=== PATIENT | female | born 1990 | race Two or more races ===

== ENCOUNTER → 2020-06-19 15:08 | Outpatient (BNVA) | payer BC, MEDICAID, SELFPAY | PROVIDERS: PCP Physician Assistant; Referring Provider Physician Assistant; Visit Provider Advanced Practice Midwife | DX: Z76.89 Persons encountering health services in other specified circumstances (principal) ==

== ENCOUNTER 2020-07-02 15:26 | Outpatient (REF) | payer BC, MEDICAID, SELFPAY | END 2020-07-02 15:27 | disposition home or self-care (01) | LOC: HO.LAB 15:26 | PROVIDERS: Visit Provider Internal Medicine | DX: Z20.828 Contact with and (suspected) exposure to other viral communicable diseases (principal) | CPT/HCPCS: 87635 ==

== ENCOUNTER 2020-09-27 14:48 | Outpatient (REF) | payer BC, MEDICAID, SELFPAY ==
[2020-09-27 16:50] LABS: Hematocrit 37.9 % (37-47); Hemoglobin 12.8 g/dl (12.0-16.0); Mean Corpuscular HGB Conc 33.8 g/dl (31.0-35.0); Mean Corpuscular Hemoglobin 31.3 pg (27.0-33.0); Mean Corpuscular Volume 92.7 fL (80-98); Mean Platelet Volume 9.8 fL (9.4-12.3); Platelet Count 326 X10*3/uL (160-400); Red Blood Count 4.09 X10*6/uL (4.20-5.50); Red Cell Distribution Width 12.6 % (11.0-16.0); White Blood Count 11.9 X10*3/uL (4.8-10.8)
[2020-09-27 17:32] LABS: TSH reflex Free T4 0.39 mIU/mL (0.32-4.0)
[2020-10-01 12:24] LABS: C. trachomatis RNA TMA NOT DETECTED; N. gonorrhoeae RNA TMA NOT DETECTED
== END 2020-09-27 14:49 | disposition home or self-care (01) ==
LOC: HO.LAB 14:48
PROVIDERS: Visit Provider Advanced Practice Midwife
DX: N93.9 Abnormal uterine and vaginal bleeding, unspecified (principal); Z86.19 Personal history of other infectious and parasitic diseases
CPT/HCPCS: 36415; 81025; 84443; 85027; 87491; 87591

== ENCOUNTER 2020-10-31 15:45 | Outpatient (REF) | payer BC, MEDICAID, SELFPAY ==
--- NOTE | ~2020-10-31 | US_ITS ---
EXAMINATION: US PELVIS, COMPLETE CLINICAL INFORMATION: Abnormal uterine, vaginal bleeding COMPARISON: 08/01/2016 ultrasound pelvis TECHNIQUE: Transabdominal and transvaginal imaging was performed. FINDINGS: LMP: 09/07/2020 Uterus is anteverted measuring 9.2 x 4.8 x 5.3 cm. Diffuse heterogeneity of the uterine parenchyma. No marginated lesion is seen. Endometrial thickness 0.8 cm. Right ovary measures 4.9 x 2.4 x 2.1 cm. Volume 12.9 mL. Multiple bilateral cysts/follicles present.. Left ovary measures 3.3 x 1.8 x 2.0 cm. Volume 6.2 mL. Multiple bilateral cysts/follicles. There are 2 para-ovarian cysts. These measure 1.6 x 0.7 x 1.4 cm and 1.9 x 0.9 x 1.3 cm. (There was a 1.3 cm left paraovarian cyst noted in the prior study of 08/01/2016.) There is vascular flow to bilateral ovaries demonstrated. Small amount of free fluid in the cul-de-sac. US/US transvaginal IMPRESSION: 1. Diffuse heterogeneity of the uterine parenchyma. No marginated lesion is seen. 2. Multiple bilateral ovarian, physiologic-appearing cysts/follicles. 3. There are 2 left-sided paraovarian cysts seen, with a maximum measurement of 1.6 cm and 1.9 cm respectively. Of note, there was a 1.3 cm paraovarian cyst noted in the prior study of 08/01/2016. Consider 6-8 weeks ultrasound for reassessment. 4. Small free fluid in the cul-de-sac.
--- NOTE | ~2020-10-31 | US_ITS ---
EXAMINATION: US PELVIS, COMPLETE CLINICAL INFORMATION: Abnormal uterine, vaginal bleeding COMPARISON: 08/01/2016 ultrasound pelvis TECHNIQUE: Transabdominal and transvaginal imaging was performed. FINDINGS: LMP: 09/07/2020 Uterus is anteverted measuring 9.2 x 4.8 x 5.3 cm. Diffuse heterogeneity of the uterine parenchyma. No marginated lesion is seen. Endometrial thickness 0.8 cm. Right ovary measures 4.9 x 2.4 x 2.1 cm. Volume 12.9 mL. Multiple bilateral cysts/follicles present.. Left ovary measures 3.3 x 1.8 x 2.0 cm. Volume 6.2 mL. Multiple bilateral cysts/follicles. There are 2 para-ovarian cysts. These measure 1.6 x 0.7 x 1.4 cm and 1.9 x 0.9 x 1.3 cm. (There was a 1.3 cm left paraovarian cyst noted in the prior study of 08/01/2016.) There is vascular flow to bilateral ovaries demonstrated. Small amount of free fluid in the cul-de-sac. US/US pelvic complete IMPRESSION: 1. Diffuse heterogeneity of the uterine parenchyma. No marginated lesion is seen. 2. Multiple bilateral ovarian, physiologic-appearing cysts/follicles. 3. There are 2 left-sided paraovarian cysts seen, with a maximum measurement of 1.6 cm and 1.9 cm respectively. Of note, there was a 1.3 cm paraovarian cyst noted in the prior study of 08/01/2016. Consider 6-8 weeks ultrasound for reassessment. 4. Small free fluid in the cul-de-sac.
== END 2020-10-31 15:46 | disposition home or self-care (01) ==
LOC: HO.US 15:45
PROVIDERS: Visit Provider Advanced Practice Midwife
DX: N93.9 Abnormal uterine and vaginal bleeding, unspecified (principal)
CPT/HCPCS: 76830; 76856

== ENCOUNTER → 2020-11-05 13:54 | Outpatient (BNVA) | payer BC, MEDICAID, SELFPAY | PROVIDERS: Visit Provider Advanced Practice Midwife ==

== ENCOUNTER 2020-11-11 15:21 | Outpatient (REF) | payer BC, MEDICAID, SELFPAY ==
[2020-11-12 05:56] LABS: Prolactin 8.6 ng/mL
[2020-11-12 06:47] LABS: DHEA Sulfate 155 mcg/dL (18-391)
[2020-11-17 11:21] LABS: Testosterone, Free 8.7 pg/mL (0.1-6.4); Testosterone, Total 44 ng/dL (2-45)
== END 2020-11-11 15:22 | disposition home or self-care (01) ==
LOC: HO.LAB 15:21
PROVIDERS: Visit Provider Advanced Practice Midwife
DX: L68.0 Hirsutism (principal)
CPT/HCPCS: 36415; 82627; 83498; 84146; 84402; 84403

== ENCOUNTER → 2020-11-18 11:10 | Outpatient (BNVA) | payer BC, MEDICAID, SELFPAY | PROVIDERS: Visit Provider Advanced Practice Midwife ==

== ENCOUNTER 2021-01-06 15:08 | Outpatient (REF) | payer BC, MEDICAID, SELFPAY ==
--- NOTE | ~2021-01-06 | US_ITS ---
EXAMINATION: ULTRASOUND PELVIS COMPLETE CLINICAL INFORMATION: Follow-up paraovarian cyst COMPARISON: None TECHNIQUE: Transabdominal and transvaginal imaging of pelvis is performed FINDINGS: The uterus is anteverted measuring 9.9 cm in length, 4.4 cm in AP and 6.0 cm in transverse dimension. Endometrial thickness is 0.1 cm. There is no focal lesion seen. The uterus is homogeneous in echotexture. There are small anechoic nabothian cyst. Right ovary measures 3.8 x 2.8 x 2.0 cm and volume 11.1 mL. Previously right ovary measured 4.9 x 2.4 x 2.1 cm. The left ovary measures 4.8 x 2.1 x 1.9 cm and volume 10.0 mL. There are small adnexal cysts seen measuring 1.8 x 0.9 x 1.3 cm and 1.4 x 0.7 x 0.9 cm. Previously left ovary measures 3.3 x 1.8 x 2.0 cm. US/US transvaginal IMPRESSION: Unremarkable anteverted uterus. Small nabothian cysts in cervix. Multiple left adnexal cysts. The ovaries are unremarkable.
--- NOTE | ~2021-01-06 | US_ITS ---
EXAMINATION: ULTRASOUND PELVIS COMPLETE CLINICAL INFORMATION: Follow-up paraovarian cyst COMPARISON: None TECHNIQUE: Transabdominal and transvaginal imaging of pelvis is performed FINDINGS: The uterus is anteverted measuring 9.9 cm in length, 4.4 cm in AP and 6.0 cm in transverse dimension. Endometrial thickness is 0.1 cm. There is no focal lesion seen. The uterus is homogeneous in echotexture. There are small anechoic nabothian cyst. Right ovary measures 3.8 x 2.8 x 2.0 cm and volume 11.1 mL. Previously right ovary measured 4.9 x 2.4 x 2.1 cm. The left ovary measures 4.8 x 2.1 x 1.9 cm and volume 10.0 mL. There are small adnexal cysts seen measuring 1.8 x 0.9 x 1.3 cm and 1.4 x 0.7 x 0.9 cm. Previously left ovary measures 3.3 x 1.8 x 2.0 cm. US/US pelvic complete IMPRESSION: Unremarkable anteverted uterus. Small nabothian cysts in cervix. Multiple left adnexal cysts. The ovaries are unremarkable.
== END 2021-01-06 15:09 | disposition home or self-care (01) ==
LOC: HO.US 15:08
PROVIDERS: Visit Provider Advanced Practice Midwife
DX: N83.209 Unspecified ovarian cyst, unspecified side (principal)
CPT/HCPCS: 76830; 76856

== ENCOUNTER → 2021-01-13 14:38 | Outpatient (BNVA) | payer BC, MEDICAID, SELFPAY | PROVIDERS: Visit Provider Advanced Practice Midwife ==

== ENCOUNTER → 2021-01-14 12:50 | Outpatient (BNVA) | payer BC, MEDICAID, SELFPAY | PROVIDERS: Visit Provider Advanced Practice Midwife | DX: N92.0 Excessive and frequent menstruation with regular cycle (principal); N83.209 Unspecified ovarian cyst, unspecified side | CPT/HCPCS: 96372; J1050 ==

== ENCOUNTER → 2021-04-03 12:54 | Outpatient (BNVA) | payer BC, MEDICAID, SELFPAY | PROVIDERS: Visit Provider Advanced Practice Midwife | DX: N92.0 Excessive and frequent menstruation with regular cycle (principal) | CPT/HCPCS: 96372 ==

== ENCOUNTER → 2021-06-09 10:23 | Outpatient (BNVA) | payer BC, MEDICAID, SELFPAY | PROVIDERS: Visit Provider Obstetrics & Gynecology ==

== ENCOUNTER 2021-06-16 15:31 | Emergency (ER) | payer BC, MEDICAID, SELFPAY ==
--- NOTE | ~2021-06-16 | XR_ITS ---
EXAMINATION: XR LUMBOSACRAL SPINE CLINICAL INFORMATION: Back pain COMPARISON: Lumbar radiographs 10/26/2019 TECHNIQUE: Three views of the lumbosacral spine. FINDINGS: There is normal lumbar segmentation with 5 nonrib-bearing lumbar vertebrae of normal height and normal lumbar lordosis. There is no lumbar vertebral compression, spondylolisthesis, or lumbar disc narrowing. No erosive changes. The SI joints and visualized sacrum are unremarkable. XR/XR lumbar spine 2-3V IMPRESSION: Unremarkable examination.
[2021-06-16 16:02] VITALS: BP 138/86; PULSE 84; RESP 16; TEMP 35.9; O2SAT 100; BMI 35.2
--- NOTE | 2021-06-16 18:34 | ED.BACK ---
HPI - Back Pain/Injury General Chief Complaint: Back Pain/Injury Stated Complaint: back pain Time Seen by Provider: 06/16/21 18:08 Source: patient Mode of arrival: ambulatory Limitations: no limitations History of Present Illness HPI Narrative: Patient presents to ED for left-sided back pain that is worse on movement. Patient states back pain started while watching television then she got up and got worse. Patient states pain is worse on movement. Patient denies any blunt trauma to the back, falling to the ground, hitting head, loss of consciousness, abdominal pain, nausea, vomiting, fever, chills, dysuria, or hematuria. Related Data Previous Rx's Medication Instructions Recorded medroxyprogesterone 150 mg/mL 150 mg IM [id number] #1 ml 01/13/21 intramuscular suspension (Depo-Provera) cyclobenzaprine 10 mg tablet 10 mg PO TID PRN #21 tab 06/16/21 naproxen 500 mg tablet 500 mg PO BID PRN #20 tab 06/16/21 nitrofurantoin 100 mg PO Q12H 7 Days #14 cap 06/16/21 monohydrate/macrocrystals 100 mg capsule (Macrobid) Allergies Allergy/AdvReac Type Severity Reaction Status Date / Time bacitracin [BACITRACIN] Allergy Severe HIVES Verified 06/09/21 10:31 triple antibiotic cream Allergy Unknown hives Uncoded 04/19/20 00:00 Review of Systems Review of Systems: Yes all other systems are reviewed and are negative Constitutional: Constitutional: Reports as per HPI and Reports no additional constitutional complaints Eyes: Eyes: Reports as per HPI and Reports no additional eye complaints ENT: Reports system reviewed and no additional complaints, except as documented and Reports as per HPI Cardiovascular: Cardiovascular: Reports as per HPI and Reports no additional cardiovascular complaints Respiratory: Respiratory: Reports as per HPI and Reports no additional respiratory complaints Gastrointestinal: Gastrointestinal: Reports as per HPI and Reports no additional gastrointestinal complaints Genitourinary: Genitourinary: Reports no additional female genitourinary complaints and Reports as per HPI Musculoskeletal: Musculoskeletal: Reports no additional musculoskeletal complaints, Reports as per HPI and Reports back pain (left sided) Neurologic: Reports system reviewed and no additional complaints, except as documented and Reports as per HPI PMFSH Past Medical History Medical History Anxiety Depression PCOS (polycystic ovarian syndrome) Surgical History No history of previous surgery Family History Family History Mother Thyroid cancer Maternal Grandmother HTN (hypertension) Diabetes mellitus Social History Social History Alcohol intake: never Patient Tobacco Use Status: Never used Tobacco Advance Directives: No Advance Directives Information Provided: No Gender identity: Female Physical Exam Vital Signs: Vital Signs: Last Vital Signs Temp 96.7 F L 06/16/21 16:02 Pulse 84 06/16/21 16:02 Resp 16 06/16/21 16:02 BP 138/86 06/16/21 16:02 Pulse Ox 100 06/16/21 16:02 Body Mass Index 35.2 Const: General: cooperative, healthy appearing, comfortable, no acute distress, well developed, alert, awake and Physically active Orientation/consciousness: patient oriented x3 HENMT: Head: Yes normal to inspection, Yes No palpable skull fracture present, Yes normocephalic, Yes atraumatic and No abrasion Eyes: General: appearance normal, both eyes and all related structures Neck: Neck: Yes normal visual inspection, Yes full ROM, Yes no lymphadenopathy, Yes no meningeal signs, Yes trachea midline, Yes supple and No tender Chest: Chest palpation & inspection: normal inspection of the chest and normal palpation of entire chest wall Resp: Effort & Inspection: normal respiratory effort and able to speak in complete sentences Auscultation: clear to auscultation bilaterally Cardio: Jugular venous distension: no JVD Heart sounds: S1 normal heart sound present and S2 normal heart sound present GI: Inspection: Yes normal to inspection and No abdominal wall ecchymosis Palpation (GI): Soft to palpation, not firm, nontender, no guarding and not rigid : General: Yes CVA tenderness (Left flank tenderness on palpation and on movement. ) Back/Spine/Pelvis: Back: CVA tenderness (Left flank tenderness on palpation and on movement. ) and back tenderness (left lumbar muscular pain) Skin: General skin exam: no rashes or lesions noted and elasticity normal Neuro: General: patient oriented x3, gait normal, no meningeal signs and CN's II-XI intact bilaterally Cranial nerves: Yes CN's II-XII intact bilaterally Extrem: General: Yes normal to inspection and Yes full ROM Psych: Appearance: grossly normal, well kempt and not disheveled Course Course Course Narrative: The patient will be sent for x-ray and urine to check for UTI versus any spine fracture. Reevaluation(s) Reevaluation #1: UA negative for blood to indicate kidney stones. UA shows leuko esterase but plenty of squamous cells may that may be a dirty catch but will treat with Macrobid in case urine culture shows infection. Patient will be discharged with naproxen, muscle relaxer, and antibioitcs.. Diagnosis muscular back pain/[place] Time: 19:11 MDM - Back Pain/Injury MDM Narrative Medical decision making narrative: UTI. Muscular back pain Lab Data Labs: Lab Results 06/16/21 06/16/21 Range/Units 18:30 18:30 Urine Color YELLOW Urine Appearance HAZY Urine pH 6.0 (5.0-8.0) Ur Specific [place] 1.025 (1.005-1.025) Urine Protein NEG (NEG-TRACE) MG/DL Urine Glucose (UA) NEG (NEG) MG/DL Urine Ketones NEG (NEG) MG/DL Urine Blood NEG (NEG) Urine Nitrite NEG (NEG) Ur Leukocyte Esterase 1+ H (NEG) Urine RBC 0-2 (0) /HPF Urine WBC 0-2 (0-4) /HPF Ur Squamous Epith Cells 2+ /LPF Urine Bacteria TRACE /LPF Urine Mucus 1+ /LPF Urine Test NEGATIVE (NEGATIVE) Discharge Plan Discharge Clinical Impression: UTI (urinary tract infection), Muscle spasm of back Patient Disposition: Home, Self-Care Instructions: Urinary Tract Infection in Women (ED), Muscle Spasm (ED), Back Pain (ED) Additional Instructions: X-ray came back negative for fracture. UA shows possible UTI. He will be discharged with pain medication, muscle relaxers, antibiotics. Return to ED for any nausea, vomiting, fever, chills, dysuria, hematuria, severe back pain, abdominal pain, flank pain, or any other concerning symptoms. Please follow-up with PCP. Prescriptions: New naproxen 500 mg tablet 500 mg PO BID PRN (Reason: pain) Qty: 20 RF: 0 cyclobenzaprine 10 mg tablet 10 mg PO TID PRN (Reason: muscle spasm) Qty: 21 RF: 0 nitrofurantoin monohyd/m-cryst [Macrobid] 100 mg capsule 100 mg PO Q12H 7 Days Qty: 14 RF: 0 No Action medroxyprogesterone [Depo-Provera] 150 mg/mL suspension 150 mg IM [id number] Qty: 1 RF: 3 Stand Alone Forms: Work/School Release Print Language: Japanese
[2021-06-16 18:37] LABS: Appearance Urine HAZY; Color Urine YELLOW; Glucose Urine UA NEG (NEG); Leukocyte Esterase Urine 1+ (NEG); Nitrite Urine NEG (NEG); Specific Gravity - Urine 1.025 (1.005-1.025); UACC Culture Trigger YES; Urine Blood NEG (NEG); Urine Ketones NEG (NEG); Urine Protein NEG (NEG-TRACE)
[2021-06-16 18:42] LABS: UPreg QC Valid YES; Urine Pregnancy NEGATIVE (NEGATIVE)
[2021-06-16 18:45] LABS: Bacteria Urine TRACE /LPF; Mucus Urine 1+ /LPF; Squamous Epithelial Cell Urine 2+ /LPF
[2021-06-16 18:46] LABS: RBC Urine 0-2 /HPF (0); WBC Urine 0-2 /HPF (0-4)
== END 2021-06-16 19:43 | disposition home or self-care (01) ==
PROVIDERS: Emergency Provider Internal Medicine
DX: N39.0 Urinary tract infection, site not specified (principal); M62.830 Muscle spasm of back
CPT/HCPCS: 72100; 81001; 81025; 87086; 99283

== ENCOUNTER → 2021-06-23 08:53 | Outpatient (BNVA) | payer BC, MEDICAID, SELFPAY | PROVIDERS: Visit Provider Advanced Practice Midwife | DX: N92.0 Excessive and frequent menstruation with regular cycle (principal) | CPT/HCPCS: 96372 ==

== ENCOUNTER 2021-07-16 09:41 | Outpatient (REF) | payer BC, MEDICAID, SELFPAY ==
--- NOTE | ~2021-07-16 | XR_ITS ---
EXAMINATION: XR CHEST CLINICAL INFORMATION: Chest pain COMPARISON: Previous chest x-ray November 2018 TECHNIQUE: 2 views of the chest were obtained. FINDINGS: No significant abnormality is noted involving the heart, lungs, mediastinum, bony thorax or soft tissues. XR/XR chest 2V IMPRESSION: Unremarkable examination.
== END 2021-07-16 09:42 | disposition home or self-care (01) ==
LOC: HO.XRAY 09:41
PROVIDERS: PCP Nurse Practitioner Family; Visit Provider Nurse Practitioner Family
DX: R07.89 Other chest pain (principal)
CPT/HCPCS: 71046

== ENCOUNTER → 2021-09-16 10:50 | Outpatient (BNVA) | payer BC, MEDICAID, SELFPAY | PROVIDERS: Visit Provider Advanced Practice Midwife | DX: N92.0 Excessive and frequent menstruation with regular cycle (principal) | CPT/HCPCS: 96372 ==

== ENCOUNTER 2021-11-13 08:08 | Emergency (ER) | payer BC, MEDICAID, SELFPAY ==
[2021-11-13 08:12] VITALS: BP 127/79; PULSE 81; RESP 20; TEMP 35.8; O2SAT 97; BMI 34.5
--- NOTE | 2021-11-13 09:22 | ED.GENADULT ---
HPI - General Adult General Chief complaint: General Medical Stated complaint: toe issues Time Seen by Provider: 11/13/21 08:11 Source: patient Mode of arrival: ambulatory History of Present Illness HPI narrative: 31-year-old female with a past medical history anxiety, depression, PCOS, presenting to the ED complaining of acute on chronic ingrown toenail to right foot. States has been dealing with this x years & usually cuts it out at home however pain has been persistent. Saw PCP who referred her to applications project manager however is unable to get in for months. Denies fever, chills, drainage from area, numbness/tingling Onset (ago): month(s) Related Data Previous Rx's Medication Instructions Recorded medroxyprogesterone 150 mg/mL 150 mg IM [id number] #1 ml 01/13/21 intramuscular suspension (Depo-Provera) cyclobenzaprine 10 mg tablet 10 mg PO TID PRN #21 tab 06/16/21 naproxen 500 mg tablet 500 mg PO BID PRN #20 tab 06/16/21 nitrofurantoin 100 mg PO Q12H 7 Days #14 cap 06/16/21 monohydrate/macrocrystals 100 mg capsule (Macrobid) Allergies Allergy/AdvReac Type Severity Reaction Status Date / Time bacitracin [BACITRACIN] Allergy Severe HIVES Verified 06/09/21 10:31 triple antibiotic cream Allergy Unknown hives Uncoded 04/19/20 00:00 Review of Systems Review of Systems: Constitutional: No Fever, No Chills ENT/Mouth: No Ear Pain, No sore throat, No Rhinorrhea, No Swallowing Difficulty Cardiovascular: No Chest Pain, No SOB Respiratory: No Cough, No Sputum Gastrointestinal: No Nausea, No Vomiting, No Diarrhea, No Constipation, No Abdominal pain Genitourinary: No Dysuria, No Urgency, No Flank Pain Musculoskeletal: No joint pain, No Myalgias, No Joint Swelling Skin: + Skin Lesions, No rash Neuro: No Weakness, No Numbness, No Paresthesias Yes all other systems are reviewed and are negative [facility] Past Medical History Attestation statement: The following information was validated with the patient. Medical History Anxiety Depression PCOS (polycystic ovarian syndrome) Surgical History No history of previous surgery Family History Family History Mother Thyroid cancer Maternal Grandmother HTN (hypertension) Diabetes mellitus Social History Social History Alcohol intake: never Patient Tobacco Use Status: Never used Tobacco Advance Directives: No Advance Directives Information Provided: Yes Gender identity: Female Physical Exam ED Vital Signs: Vital Signs - 24 hr 11/13/21 08:12 Temperature 96.5 F L Pulse Rate 81 Respiratory Rate 20 Blood Pressure 127/79 Pulse Oximetry 97 BMI result Body Mass Index 34.5 Const General: cooperative, healthy appearing and no acute distress Orientation/consciousness: patient oriented x3 Limitations: no limitations HENMT Head: Yes normal to inspection Ears: hearing grossly normal bilaterally General nose exam: Normal external nose present Face and sinus: Yes normal facial exam Eyes General: appearance normal, both eyes and all related structures EOM: EOMs intact bilaterally Neck Neck: Yes normal visual inspection and Yes no meningeal signs Resp Effort & Inspection: normal respiratory effort and no respiratory distress Cardio Rate: regular rate Heart sounds: S1 normal heart sound present and S2 normal heart sound present Peripheral pulses: dorsalis pedis present Skin Rashes: no rashes Wounds: no wounds Neuro General: patient oriented x3 and no meningeal signs Gait exam (Neuro): Normal gait present Extrem Other: Right great toe is minimally ingrown toenail, tender to palpation to lateral aspect with mild swelling. No erythema, no fluctuance/induration, no drainage. Cap refill WNL. General: Yes normal to inspection Medical Decision Making MDM Narrative Medical decision making narrative: 31-year-old female with a past medical history anxiety, depression, PCOS, presenting to the ED complaining of acute on chronic ingrown toenail to right foot. On exam vital signs stable, NAD/nontoxic appearing, physical exam as above. Discussed with patient needed close follow-up with Podiatry, discussed attempting to cut out small amount of ingrown toenail today likely cause more harm than good, patient in agreement with plan. Discussed worrisome signs and symptoms and strict return precautions and need to close follow-up Medical Records Medical records reviewed: Yes I reviewed the patient's medical records. Discharge Plan Discharge Clinical Impression: Ingrown left big toenail Patient Disposition: Home, Self-Care Instructions: Ingrown Nail (ED) Additional Instructions: Your ingrown toenail looks very well, and not infected today however keep close eye on it, if it begins to look infected, is red, there is drainage from a you fever please return to the emergency department. Continue to soak in warm water with Epsom salt If pain becomes unbearable bleed return to the ED. You need to follow-up with Podiatry Prescriptions: No Action naproxen 500 mg tablet 500 mg PO BID PRN (Reason: pain) Qty: 20 0RF cyclobenzaprine 10 mg tablet 10 mg PO TID PRN (Reason: muscle spasm) Qty: 21 0RF Rx Instructions: side effect is drowsiness. Do not take at work or while driving. nitrofurantoin monohyd/m-cryst [Macrobid] 100 mg capsule 100 mg PO Q12H 7 Days Qty: 14 0RF Rx Instructions: must administer with a meal/food medroxyprogesterone [Depo-Provera] 150 mg/mL suspension 150 mg IM [id number] Qty: 1 3RF Referrals: Reymundo Ruiz DPM [Physician] - 2 days Lilian Jack DPM [] - 2 days Lilian Jack DPM [Physician] - 2 days Leodan Carbajal DPM [Physician] - 2 days Xavier Rosado DPM [Physician] - 2 days Reid Rubin DPM [Physician] - 2 days Steven Zaragoza DPM [] - 2 days Chase Blankenship DPM [Physician] - 2 days Doug Callahan MD [Physician] - 2 days Jeremias Callahan DPM [Physician] - 2 days
[2021-11-13 09:24] VITALS: RESP 18; TEMP 36.2
== END 2021-11-13 09:27 | disposition home or self-care (01) ==
PROVIDERS: Emergency Provider Emergency Medicine; PCP Nurse Practitioner Family
DX: L60.0 Ingrowing nail (principal)
CPT/HCPCS: 99283

== ENCOUNTER 2022-03-29 20:15 | Emergency (ER) | payer BC, MEDICAID, SELFPAY ==
--- NOTE | ~2022-03-29 | XR_ITS ---
EXAMINATION: CR KNEE, RIGHT CLINICAL INFORMATION: Pain. COMPARISON: None TECHNIQUE: Four views of the right knee. FINDINGS: Bones and soft tissues are normal. No fracture or joint effusion. Alignment is anatomic. Joint spaces are well maintained. No abnormal soft tissue calcification. XR/XR knee RT 3V IMPRESSION: Normal right knee.
[2022-03-29 20:17] VITALS: BP 128/92; PULSE 90; RESP 18; TEMP 36.8; O2SAT 98; BMI 35.2
--- NOTE | 2022-03-29 23:24 | ED_ITS ---
HPI - General Adult General Chief complaint: Extremity Injury, Lower Stated complaint: RT Knee Injury 03/27/22 Time Seen by Provider: 03/29/22 23:19 Source: patient Mode of arrival: ambulatory Limitations: no limitations History of Present Illness HPI narrative: Patient is a 31 year old female presenting to the emergency department today with right upper leg pain. Patient states that she slipped and fell, landing directly on the right knee. Patient states it is very difficult to raise her right leg. Patient denies hitting her head with the incident. Patient denies any loss of consciousness with the incident. Patient denies any dizziness, lightheadedness, abdominal pain, nausea, vomiting, fever, chills, blurry vision, double vision, loss of vision, chest pain, difficulty breathing, shortness of breath, back pain, night sweats, pain with urination, increased urinary frequency, increased urinary urgency, blood in her urine or stool, syncope or a near syncopal episode, bowel incontinence, bladder incontinence, bowel retention, bladder retention, or any other complaints at this time. Onset (ago): day(s) (2) Location: right and lower extremity Radiation: non-radiation Severity: mild Severity scale (1-10): 3 Quality: dull Pain Consistency: constant Relieving factors: none Exacerbating factors: none Associated symptoms: denies other symptoms Treatments prior to arrival: none Related Data Previous Rx's Medication Instructions Recorded medroxyprogesterone 150 mg/mL 150 mg IM [id number] #1 mL 01/13/21 intramuscular suspension (Depo-Provera) cyclobenzaprine 10 mg tablet 10 mg PO TID PRN muscle spasm #21 06/16/21 tabs naproxen 500 mg tablet 500 mg PO BID PRN pain #20 tabs 06/16/21 nitrofurantoin 100 mg PO Q12H 7 days #14 caps 06/16/21 monohydrate/macrocrystals 100 mg capsule (Macrobid) Allergies Allergy/AdvReac Type Severity Reaction Status Date / Time bacitracin [BACITRACIN] Allergy Severe HIVES Verified 03/29/22 20:17 triple antibiotic cream Allergy Unknown hives Uncoded 04/19/20 00:00 Review of Systems Constitutional: Constitutional: Reports no additional constitutional complaints, Denies chills, Denies fever(s) and Denies night sweats Eyes: Eyes: Reports no additional eye complaints, Denies blurry vision, Denies change in vision, Denies diplopia, Denies eye discharge, Denies loss of vision and Denies eye pain ENT: Denies dizziness Cardiovascular: Cardiovascular: Reports no additional cardiovascular complaints, Denies chest pain, Denies lightheadedness, Denies Loss of Consciousness and Denies dyspnea Respiratory: Respiratory: Reports no additional respiratory complaints and Denies dyspnea Gastrointestinal: Gastrointestinal: Reports no additional gastrointestinal complaints, Denies abdominal pain, Denies melena, Denies hematochezia, Denies change in bowel habits and Denies change in stool character Genitourinary: Genitourinary: Denies hematuria, Denies urinary frequency, Denies dysuria, Denies urinary incontinence, Denies urinary hesitancy and Denies urinary urgency Musculoskeletal: Musculoskeletal: Reports no additional musculoskeletal complaints, Denies numbness and Denies tingling Comments: right leg pain Neurologic: Denies dizziness, Denies loss of vision, Denies numbness and Denies tingling Psychiatric: Psychiatric: Reports no additional psychiatric complaints Endocrine: Endocrine: Reports no additional endocrine complaints Hematologic/Lymphatic: Hematologic/Lymphatic: Reports no additional hematologic/lymphatic complaints Allergic/Immunologic: Allergic/Immunologic: Reports no additional allergic/immunologic complaints PMFSH Past Medical History Attestation statement: The following information was validated with the patient. Source: old records reviewed Medical History Anxiety Depression PCOS (polycystic ovarian syndrome) Surgical History No history of previous surgery Family History Family History Mother Thyroid cancer Maternal Grandmother HTN (hypertension) Diabetes mellitus Social History Social History Alcohol intake: never Patient Tobacco Use Status: Never used Tobacco Advance Directives: No Advance Directives Information Provided: Yes Gender identity: Female Physical Exam ED Vital Signs: Vital Signs - 24 hr 03/29/22 20:17 Temperature 98.3 F Pulse Rate 90 Respiratory Rate 18 Blood Pressure 128/92 H Pulse Oximetry 98 Oxygen Delivery Method Room Air BMI result Body Mass Index 35.2 Const General: cooperative, no acute distress, alert and awake Nutritional Appearance: well nourished Orientation/consciousness: patient oriented x3 Limitations: no limitations HENMT Head: Yes normal to inspection and Yes atraumatic Ears: hearing grossly normal bilaterally and external ears normal General nose exam: Normal external nose present, no nasal discharge noted and no epistaxis Face and sinus: Yes normal facial exam, No abrasion and No laceration Mouth: Normal oral and palatal mucosa present, no drooling and no muffled voice Eyes General: appearance normal, both eyes and all related structures Periorbital: periorbital findings normal Eyelids: Yes eyelids normal Conjunctivae: conjunctivae normal Pupils: Equal, round and reactive pupils present EOM: EOMs intact bilaterally Neck Neck: Yes normal visual inspection, Yes full ROM and Yes no lymphadenopathy Chest Chest palpation & inspection: normal inspection of the chest Resp Effort & Inspection: normal respiratory effort and able to speak in complete sentences Auscultation: clear to auscultation bilaterally Cardio Rate: regular rate Rhythm: regular rhythm GI Inspection: Yes normal to inspection Neuro General: patient oriented x3 and moves all extremities Cranial nerves: Yes Equal, round and reactive pupils present Cognition (Neuro): normal cognition Motor exam (neuro): 5/5 motor strength present throughout Sensory Exam: Normal double simultaneous stimulation for sensation Coordination: [id number] test normal Extrem Other: patient has been when attempting to lift the right upper leg General: Yes normal to inspection and Yes capillary refill normal Psych Appearance: grossly normal Mental Status: mental status grossly normal Affect: normal affect Attitude: cooperative Thought process: Normal thought process present Thought content: Normal thought content present Insight: Good insight present (Psych) Procedures Orthopedic Splinting/Casting Injury #1: Side: right Lower Extremity Injury Location: knee Lower Extremity Immobilizer: knee immobilizer Other Orthopedic Equipment: crutches Medical Decision Making [facility] Narrative Medical decision making narrative: Patient is a 31 year old female presenting to the emergency department today with right upper leg pain. Patient's physical exam showed pain when attempting to lift the right upper leg but was otherwise unremarkable. Patient's right knee x-ray showed no acute process. I explained my physical exam findings as well as all test results to the patient. I answered all questions asked by the patient. Patient's knee was placed in an immobilizer and she was given crutches with crutch instructions. I stressed the importance of the patient taking her medication as prescribed. I stressed the importance of the patient following up with her primary care provider. I stressed the importance of the patient returning to the emergency department immediately if her symptoms were to worsen or if she were to develop any dizziness, shortness of breath, difficulty breathing, chest pain, blurry vision, loss of vision, nausea, vomiting, abdominal pain, fever, chills, back pain, or any other complaints. Patient verbalized agreement and understanding with this treatment plan and discharge. Differential Diagnosis Differential Diagnosis: quad injury Medical Records Medical records reviewed: Yes I reviewed the patient's medical records. Imaging Data Right knee x-ray: Attestation: I personally reviewed and interpreted this imaging study as follows: My impression: No acute process. Radiologist's impression: EXAMINATION: CR KNEE, RIGHT? CLINICAL INFORMATION: Pain.? COMPARISON: None? TECHNIQUE: Four views of the right knee. FINDINGS: Bones and soft tissues are normal. No fracture or joint effusion. Alignment is anatomic. Joint spaces are well maintained. No abnormal soft tissue calcification.? XR/XR knee RT 3V IMPRESSION: Normal right knee. Dictated By: Janneth Hobson MD Signed By: Electronically signed by Janneth Hobson MD 03/29/22 2077 Discharge Plan Discharge Clinical Impression: Injury of quadriceps muscle Patient Disposition: Home, Self-Care Instructions: Crutch Instructions (ED), Hamstring Injury (ED) Additional Instructions: Follow up with your primary care provider and an orthopedic provider. Return to the emergency department immediately if your symptoms worsen or if you develop any dizziness, shortness of breath, difficulty breathing, chest pain, blurry vision, loss of vision, nausea, vomiting, abdominal pain, fever, chills, back pain, or any other complaints. Prescriptions: No Action naproxen 500 mg tablet 500 mg PO BID PRN (Reason: pain) Qty: 20 0RF cyclobenzaprine 10 mg tablet 10 mg PO TID PRN (Reason: muscle spasm) Qty: 21 0RF Rx Instructions: side effect is drowsiness. Do not take at work or while driving. nitrofurantoin monohyd/m-cryst [Macrobid] 100 mg capsule 100 mg PO Q12H 7 Days Qty: 14 0RF Rx Instructions: must administer with a meal/food medroxyprogesterone [Depo-Provera] 150 mg/mL suspension 150 mg IM [id number] Qty: 1 3RF Referrals: [facility] [Provider Group] (Call to establish and follow up with an orthopedic provider.) Jael Krishnan [Primary Care Provider] - Stand Alone Forms: Work/School Release Interventions: ED Discharge Assessment Last Done: 03/29/22 23:50 Discharge Date/Time: 03/29/22 23:52 Print Language: Portuguese
[2022-03-29] MEDS: Ketorolac Tromethamine 15 MG/ML VIAL IM (23:40)
--- NOTE | 2022-03-29 23:52 | PC.NURSE ---
nanotechnology engineering technologist at bedside for crutches and immobilizer.
== END 2022-03-29 23:52 | disposition home or self-care (01) ==
PROVIDERS: Emergency Provider Internal Medicine; PCP Nurse Practitioner Family
DX: S76.111A Strain of right quadriceps muscle, fascia and tendon, initial encounter (principal); M25.561 Pain in right knee; W01.0XXA Fall on same level from slipping, tripping and stumbling without subsequent striking against object, initial encounter; Y93.9 Activity, unspecified; Y92.9 Unspecified place or not applicable; Y99.9 Unspecified external cause status; Z79.899 Other long term (current) drug therapy
CPT/HCPCS: 73562; 96372; 99283; 99284; J1885

== ENCOUNTER 2022-04-02 08:46 | Outpatient (REF) | payer BC, MEDICAID, SELFPAY ==
--- NOTE | ~2022-04-02 | XR_ITS ---
EXAMINATION: XR HIP, RIGHT CLINICAL INFORMATION: Hip pain COMPARISON: Lumbar radiographs is 06/16/2021 TECHNIQUE: AP and frog-lateral of the right hip. FINDINGS: There is osteitis pubis with subchondral pubic sclerosis. No erosive change. The right hip shows no fracture or dislocation or destructive process. There is no hip joint narrowing or erosive change or visible chondrocalcinosis. Soft tissue planes appear normal. There is a short tubular probable clothing artifact overlying lateral right soft tissues. XR/XR hip RT min 2V IMPRESSION: -Osteitis pubis -Normal right hip.
== END 2022-04-02 08:47 | disposition home or self-care (01) ==
LOC: HO.HOSX 08:46
PROVIDERS: Visit Provider Physician Assistant
DX: M25.551 Pain in right hip (principal)
CPT/HCPCS: 73502

== ENCOUNTER 2022-06-30 08:29 | Outpatient (REF) | payer BC, MEDICAID, SELFPAY ==
--- NOTE | ~2022-06-30 | US_ITS ---
EXAMINATION: US SOFT TISSUE NECK CLINICAL INFORMATION: Right-sided neck pain and submandibular swelling. Question parotid swelling. COMPARISON: None TECHNIQUE: Ultrasound of the neck soft tissues is performed in the submandibular region using a linear transducer. Comparison imaging of the left submandibular region was also performed. FINDINGS: There are 4 clustered lymph nodes in the right submandibular region. These measure 1.8 x 0.8 x 1.4 cm, 1.3 x 0.4 x 1 cm, 1.1 x 0.5 x 1.4 cm, and 1 x 0.6 x 1.1 cm in sagittal, AP, and transverse dimension. Some lymph nodes are slightly enlarged and are diffusely hypoechoic with loss of normal fatty hilum. There is a left submandibular lymph node that measures 2.1 x 0.7 x 1.4 cm. US/US soft tiss head and/or neck IMPRESSION: Palpable abnormality corresponds to multiple right submandibular lymph nodes. Some lymph nodes are slightly enlarged and demonstrate abnormal ultrasound morphology with loss of fatty hilum. Management should be determined on a clinical basis.
== END 2022-06-30 08:30 | disposition home or self-care (01) ==
LOC: HO.HMGCX 08:29
PROVIDERS: Visit Provider Registered Nurse
DX: R22.1 Localized swelling, mass and lump, neck (principal)
CPT/HCPCS: 76536

== ENCOUNTER 2022-07-15 12:10 | Outpatient (REF) | payer BC, MEDICAID, SELFPAY ==
--- NOTE | ~2022-07-15 | XR_ITS ---
EXAMINATION: XR CHEST CLINICAL INFORMATION: Enlarged lymph nodes. COMPARISON: Chest radiograph 07/16/2021. TECHNIQUE: 2 views of the chest were obtained. FINDINGS: No significant abnormality is noted involving the heart, lungs, mediastinum, bony thorax or soft tissues. XR/XR chest 2V IMPRESSION: Unremarkable examination.
[2022-07-15 12:46] LABS: MANUAL DIFF FLAG NO
[2022-07-15 13:13] LABS: Basophils Absolute Auto 0.1 X10*3/uL (0.0-0.2); Basophils Percent Auto 0.7 % (0-2); Eosinophils Absolute Auto 0.1 X10*3/uL (0.0-0.4); Eosinophils Percent Auto 1.3 % (0-4); Hematocrit 40.6 % (37.0-47.0); Hemoglobin 13.9 g/dl (12.0-16.0); Imm Gran Abs Auto 0.02 X10*3/uL (0.00-0.03); Imm Gran Pct Auto 0.3 % (0.0-0.4); Lymphocytes Absolute Auto 2.7 X10*3/uL (1.2-4.9); Lymphocytes Percent Auto 35.4 % (20-40); Mean Corpuscular HGB Conc 34.2 g/dl (31.0-35.0); Mean Corpuscular Hemoglobin 30.4 pg (27.0-33.0); Mean Corpuscular Volume 88.8 fL (80.0-98.0); Monocytes Absolute Auto 0.6 X10*3/uL (0.1-1.2); Monocytes Percent Auto 8.2 % (2-11); Neutrophils Absolute Auto 4.1 x10*3/uL (2.0-8.3); Neutrophils Percent Auto 54.1 % (45-73); Platelet Count 350 X10*3/uL (160-400); Red Blood Count 4.57 X10*6/uL (4.20-5.50); Red Cell Distribution Width 12.6 % (11.0-16.0); White Blood Count 7.6 X10*3/uL (4.8-10.8)
[2022-07-15 13:33] LABS: C Reactive Protein 0.39 mg/dL (< or = 0.50)
[2022-07-15 13:53] LABS: Erythrocyte Sedimentation Rate 10 MM/HR (0-20)
[2022-07-15 13:55] LABS: TSH reflex Free T4 0.66 uIU/mL (0.32-4.0)
[2022-07-16 06:34] LABS: HIV AB/AG Nonreactive (Nonreactive); HIV Num 1 0.08 S/CO (0.00-0.99)
[2022-07-17 10:31] LABS: EBV-NA IgG Index >600.00 U/mL; EBV-VCA IgM Ab <36.00 U/mL
[2022-07-18 18:06] LABS: CMV DNA PCR Qn Source Whole Blood; CMV DNA Qn PCR Not Detected log IU/mL; CMV DNA Qn Real Time PCR Not Detected
== END 2022-07-15 12:11 | disposition home or self-care (01) ==
LOC: HO.XRAY 12:10
PROVIDERS: Absent Provider Registered Nurse; PCP Registered Nurse; Visit Provider Registered Nurse
DX: Z11.4 Encounter for screening for human immunodeficiency virus [HIV] (principal); R05.3 Chronic cough; R59.9 Enlarged lymph nodes, unspecified
CPT/HCPCS: 36415; 71046; 84443; 85025; 85652; 86140; 86664; 86665; 87389; 87497

== ENCOUNTER 2022-07-21 12:41 | Outpatient (REF) | payer BC, MEDICAID, SELFPAY ==
[2022-07-23 12:56] LABS: TS Negative Control Passed; TS Panel A 6; TS Panel B 0; TS Positive Control Passed; TSpotTB Borderline (Negative)
== END 2022-07-21 12:42 | disposition home or self-care (01) ==
LOC: HO.LAB 12:41
PROVIDERS: PCP Registered Nurse; Visit Provider Registered Nurse
DX: R05.3 Chronic cough (principal); R59.9 Enlarged lymph nodes, unspecified
CPT/HCPCS: 36415; 86481

== ENCOUNTER 2022-10-29 12:55 | Outpatient (REF) | payer BC, MEDICAID, SELFPAY ==
--- NOTE | ~2022-10-29 | US_ITS ---
EXAMINATION: US CHEST CLINICAL INFORMATION: Swelling, mass and lump upper mid back. COMPARISON: None. TECHNIQUE: Targeted ultrasound. FINDINGS: Targeted ultrasound evaluation to palpable region in the left upper back demonstrated a 5.1 x 4.8 x 1.6 cm homogeneous well-circumscribed subcutaneous lesion which is wider than it is tall without internal vascularity. This has the appearance of a lipoma. US/US chest IMPRESSION: Palpable abnormality corresponds to a lesion with the appearance of a lipoma.
== END 2022-10-29 12:56 | disposition home or self-care (01) ==
LOC: HO.US 12:55
PROVIDERS: PCP Registered Nurse; Visit Provider Registered Nurse
DX: R22.2 Localized swelling, mass and lump, trunk (principal)
CPT/HCPCS: 76604

== ENCOUNTER 2022-11-05 17:40 | Emergency (ER) | payer OTHER, BC, MEDICAID, SELFPAY ==
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
[2022-11-05 18:00] VITALS: BP 136/82; PULSE 69; RESP 20; O2SAT 97
[2022-11-05 18:19] VITALS: BP 135/100; PULSE 102; O2SAT 97
[2022-11-05 18:20] VITALS: BP 136/82; PULSE 69; RESP 20; O2SAT 97; BMI 35.1
[2022-11-05] MEDS: oxyCODONE HCl Immed Release 5 MG TABLET PO (18:33)
[2022-11-05] MEDS: Acetaminophen 325 MG TABLET 975 MG PO (18:33)
[2022-11-05 18:44] LABS: Appearance Urine Cloudy; Color Urine Yellow; Glucose Urine UA Negative (Negative); Leukocyte Esterase Urine Small (1+) (Negative); Nitrite Urine Positive (Negative); Specific Gravity - Urine >= 1.030 (1.005-1.025); UMIC TRIGGER UACC YES; Urine Blood Trace (Negative); Urine Ketones Trace mg/dL (Negative); Urine Protein 30 (1+) mg/dL (Neg-Trace)
[2022-11-05 18:47] LABS: UPreg QC Valid YES; Urine Pregnancy NEGATIVE (NEGATIVE)
[2022-11-05 18:49] LABS: Bacteria Urine 4+ (None Seen); Hyaline Casts Urine 0-2 /LPF (0-2); UACC Culture Trigger YES; WBC Urine 21-50 /HPF (0-5)
== END 2022-11-05 20:42 | disposition home or self-care (01) ==
PROVIDERS: Physician Assistant; Emergency Provider Emergency Medicine
DX: S39.012A Strain of muscle, fascia and tendon of lower back, initial encounter (principal); S80.02XA Contusion of left knee, initial encounter; V43.52XA Car driver injured in collision with other type car in traffic accident, initial encounter; Y93.9 Activity, unspecified; Y92.410 Unspecified street and highway as the place of occurrence of the external cause; Y99.9 Unspecified external cause status; Z79.899 Other long term (current) drug therapy
CPT/HCPCS: 72100; 73564; 81001; 81025; 87086; 99283

== ENCOUNTER 2022-11-17 14:59 | Outpatient (REF) | payer BC, MEDICAID, SELFPAY ==
[2022-11-17 15:51] LABS: MANUAL DIFF FLAG NO
[2022-11-17 16:30] LABS: Basophils Absolute Auto 0.1 X10*3/uL (0.0-0.2); Basophils Percent Auto 0.6 % (0-2); Eosinophils Absolute Auto 0.1 X10*3/uL (0.0-0.4); Hematocrit 45.1 % (37.0-47.0); Hemoglobin 15.2 g/dl (12.0-16.0); Imm Gran Abs Auto 0.02 X10*3/uL (0.00-0.03); Imm Gran Pct Auto 0.2 % (0.0-0.4); Lymphocytes Absolute Auto 4.4 X10*3/uL (1.2-4.9); Lymphocytes Percent Auto 44.4 % (20-40); Mean Corpuscular HGB Conc 33.7 g/dl (31.0-35.0); Mean Corpuscular Hemoglobin 29.9 pg (27.0-33.0); Mean Corpuscular Volume 88.8 fL (80.0-98.0); Mean Platelet Volume 10.9 fL (9.4-12.3); Monocytes Absolute Auto 0.8 X10*3/uL (0.1-1.2); Monocytes Percent Auto 8.3 % (2-11); Neutrophils Absolute Auto 4.5 x10*3/uL (2.0-8.3); Neutrophils Percent Auto 45.5 % (45-73); Platelet Count 215 X10*3/uL (160-400); Red Blood Count 5.08 X10*6/uL (4.20-5.50); Red Cell Distribution Width 12.6 % (11.0-16.0); White Blood Count 9.8 X10*3/uL (4.8-10.8)
[2022-11-17 16:47] LABS: Anion Gap 14 (12-20); Blood Urea Nitrogen 10 mg/dL (9-16); Calcium 9.7 mg/dL (8.4-10.2); Carbon Dioxide 22 mmol/L (22-29); Chloride 109 mmol/L (96-108); Estimated Glomerular Filt Rate > 60; Glucose Random 90 mg/dL (60-115); Potassium 4.5 mmol/L (3.3-5.1); Sodium 140 mmol/L (135-145)
[2022-11-17 16:53] LABS: D Dimer High Sensitivity 272 NG/ML
[2022-11-17 17:06] LABS: Erythrocyte Sedimentation Rate 5 MM/HR (0-20)
[2022-11-19 12:23] LABS: Antibody to SS-A Antigen <1.0 NEG AI (<1.0 NEG); Antibody to SS-B Antigen <1.0 NEG AI (<1.0 NEG)
[2022-11-19 20:18] LABS: Immunoglobulin E 52 kU/L (<OR=114)
[2022-11-20 11:23] LABS: Cyclic Citrullinated Peptide <16 UNITS
[2022-11-20 15:08] LABS: Anti Nuclear Antibody Screen NEGATIVE (NEGATIVE)
== END 2022-11-17 15:00 | disposition home or self-care (01) ==
LOC: HO.LAB 14:59
PROVIDERS: PCP Registered Nurse; Visit Provider Hospitalist
DX: R07.89 Other chest pain (principal); R00.0 Tachycardia, unspecified; M25.50 Pain in unspecified joint; R68.2 Dry mouth, unspecified
CPT/HCPCS: 36415; 80048; 82785; 85025; 85379; 85652; 86038; 86039; 86200; 86235; 94618

== ENCOUNTER 2022-11-18 15:41 | Outpatient (REF) | payer BC, MEDICAID, SELFPAY ==
--- NOTE | ~2022-11-18 | CT_ITS ---
EXAMINATION: CT ANGIOGRAM OF THE CHEST WITH AND WITHOUT CONTRAST (CT PULMONARY ANGIOGRAM FOR PE) CLINICAL INFORMATION: CHEST PAIN, ELEVATED D-DIMER, TACHYCARDIA COMPARISON: Chest x-ray 07/15/2022 TECHNIQUE: Prior to contrast administration, noncontrast localization images were obtained. Subsequently, multidetector volumetric imaging was performed from the thoracic inlet to below the diaphragms following the administration of 65 mL Omnipaque 350 intravenous contrast. No contrast reaction reported Sagittal, coronal, and MIP oblique sagittal reformatted images were obtained on the CT workstation, uploaded to PACS, and reviewed. This CT examination was performed using dose optimization techniques as appropriate, variously including the following: *Automated exposure control *Adjustment of mA and/or kV according to patient size (this includes techniques or standardized protocols for targeted exams where dose is matched to indication/reason for exam; i.e. extremities or head) *Use of iterative reconstruction technique Total exam dose-length product 134 mGy-cm FINDINGS: QUALITY OF STUDY/CONTRAST BOLUS: Satisfactory. PULMONARY ARTERIES: No central or segmental pulmonary emboli. THORACIC AORTA: No aneurysm or dissection. LUNG: No focal consolidation, nodules or masses. PLEURA: No pleural effusion or pneumothorax. MEDIASTINUM: Normal heart size. No pericardial effusion. No hilar or mediastinal lymphadenopathy. No evidence of septal bowing or right heart strain. CORONARY ARTERY CALCIFICATION: None visualized on this study. CHEST WALL/AXILLA: No axillary or internal mammary lymphadenopathy. OSSEOUS STRUCTURES: No acute or suspicious osseous abnormality. UPPER ABDOMEN: Unremarkable. No reflux of contrast into the hepatic veins to suggest elevated right heart pressures. CT/CT angio chest PE protocol IMPRESSION: Normal CT of chest. No evidence of pulmonary embolism. VTE: negative
[2022-11-18] MEDS: iohexoL 350 MG/ML 100 ML INFUS..BTL IV (16:32)
== END 2022-11-18 15:42 | disposition home or self-care (01) ==
LOC: HO.CT 15:41
PROVIDERS: PCP Registered Nurse; Visit Provider Hospitalist
DX: R07.89 Other chest pain (principal); R00.0 Tachycardia, unspecified; R06.00 Dyspnea, unspecified; R78.89 Finding of other specified substances, not normally found in blood
CPT/HCPCS: 71275; Q9967

== ENCOUNTER → 2022-11-24 09:22 | Outpatient (BNVA) | payer BC, MEDICAID, SELFPAY | PROVIDERS: PCP Registered Nurse; Referring Provider Registered Nurse; Visit Provider Internal Medicine | DX: Z13.89 Encounter for screening for other disorder (principal) ==

== ENCOUNTER → 2022-11-30 08:43 | Outpatient (BNVA) | payer BC, MEDICAID, SELFPAY | PROVIDERS: PCP Registered Nurse; Visit Provider Surgery | DX: Z13.89 Encounter for screening for other disorder (principal) ==

== ENCOUNTER 2022-12-07 15:50 | Outpatient (REF) | payer BC, MEDICAID, SELFPAY ==
--- NOTE | 2022-12-07 17:17 | PFT_ITS ---
FLOWS: 1. FEV1 92% of predicted at 3.15 L. 2. FVC 89% of predicted at 3.56 L. 3. FEV1 to FVC ratio of 0.88. 4. No bronchodilator response. LUNG VOLUMES: 1. Total lung capacity 85% of predicted at 4.55 L. 2. Residual volume 71% of predicted at 1.29 L. 3. Slow vital capacity 90% of predicted at 3.46 L. 4. Expiratory reserve volume 14% of predicted at 0.20 L. 5. Diffusion capacity is normal. IMPRESSION: No obstructive or restrictive ventilatory defect. No bronchodilator response. Decreased respiratory reserve volume suggests extrathoracic restriction, likely secondary to abdominal obesity. Jovanny Gupta MD AP/MODL / [id number]
== END 2022-12-07 15:51 | disposition home or self-care (01) ==
LOC: HO.RESP 15:50
PROVIDERS: Visit Provider Hospitalist
DX: R06.00 Dyspnea, unspecified (principal)
CPT/HCPCS: 94060; 94727; 94729

== ENCOUNTER → 2022-12-15 06:55 | Day surgery (SDC) | payer BC, MEDICAID, SELFPAY ==
[2022-12-08 11:04] VITALS: BMI 36.9
--- NOTE | 2022-12-14 09:39 | HO.ANESPROP2 ---
HPI - Anesthesia Eval Consult details Narrative: 32yo F for Left Excision Lt back Lipoma PMFSH Active Problems Active Problems: All Active Problems (Updated 12/08/22 @ 11:03 by Sheri Kiran RN) Encounter to discuss test results (Acute) Hirsutism (Acute) Heavy menstrual bleeding (Acute) Ovarian cyst (Acute) Family planning advice (Acute) Tendinitis of right hip flexor (Acute) Chest discomfort (Acute) Blood D-dimer assay positive (Acute) Constipation (Acute) Chronic idiopathic constipation (Acute) Lipoma of back (Acute) Dyspnea (Acute) Arthralgia (Acute) Dry mouth (Acute) Tachycardia (Acute) Past Medical History Medical History (Updated 12/08/22 @ 11:03 by Sheri Kiran RN) Anxiety Arthralgia Depression Dry mouth Dyspnea History of COVID-19 PCOS (polycystic ovarian syndrome) Tachycardia Type 2 diabetes mellitus Family History Family History Mother Thyroid cancer Maternal Grandmother HTN (hypertension) Diabetes mellitus Family/Other Colon cancer Surgical History Surgical History (Updated 12/08/22 @ 11:00 by Sheri Kiran RN) History of tubal ligation Social History Social History Are you a primary workforce investment act career manager to a significant other at home: No Do you presently have visiting nurse or other home services: No Alcohol intake: never Patient Tobacco Use Status: Never used Tobacco Current occupational status: unemployed Current occupation: left hand Gender identity: Female Meds Allergies Allergy/AdvReac Type Severity Reaction Status Date / Time bacitracin [BACITRACIN] Allergy Severe HIVES Verified 11/30/22 08:56 triple antibiotic cream Allergy Severe hives Uncoded 12/08/22 10:46 Home Medications Medication Instructions Recorded Confirmed Last Taken Type amitriptyline 10 mg tablet 10 mg PO BEDTIME 11/17/22 12/08/22 Unknown History metformin 500 mg tablet 500 mg PO DAILY 11/17/22 12/08/22 Unknown History spironolactone 25 mg tablet 25 mg PO DAILY 11/17/22 12/08/22 Unknown History Exam Exam Date and Time: December 14, 2022 0939 Height,Weight and Vital Signs: Height 5 ft 6 in Weight 103.873 kg Pertinent Lab Results Pertinent Lab Results: Laboratory Tests 11/17/22 11/17/22 15:49 15:49 WBC 9.8 Hgb 15.2 Hct 45.1 Plt Count 215 D Sodium 140 Potassium 4.5 Chloride 109 H Carbon Dioxide 22 BUN 10 Creatinine 0.75 Narrative Narrative: PFT 12/2022 FLOWS:? 1. FEV1 92% of predicted at 3.15 L. 2. FVC 89% of predicted at 3.56 L. 3. FEV1 to FVC ratio of 0.88. 4. No bronchodilator response. ?? LUNG VOLUMES:? 1. Total lung capacity 85% of predicted at 4.55 L. 2. Residual volume 71% of predicted at 1.29 L. 3. Slow vital capacity 90% of predicted at 3.46 L. 4. Expiratory reserve volume 14% of predicted at 0.20 L. 5. Diffusion capacity is normal. ?? IMPRESSION:? No obstructive or restrictive ventilatory defect.? No bronchodilator response. Decreased respiratory reserve volume suggests extrathoracic restriction, likely secondary to abdominal obesity. Assessment and Plan Assessment Anesthesia Assessment: Chart Reviewed
--- NOTE | 2022-12-14 20:13 | MHC.SHP ---
Pre-Procedural Eval Section A Date of Service: 12/15/22 The patient is an INPATIENT: No Changes since office visit: No Cold of Flu in the past 2 weeks, No New Medical Problems, No Changes in Medication and No Patient answered all questions The History & Physical has been completed within 30 days and I have reviewed it.: Yes Section B Chief Complaint: Benign lipomatous neoplasm of skin and subcutaneou Allergies: Allergies Allergy/AdvReac Type Severity Reaction Status Date / Time bacitracin [BACITRACIN] Allergy Severe HIVES Verified 11/30/22 08:56 triple antibiotic cream Allergy Severe hives Uncoded 12/08/22 10:46 Plan I have reviewed the history and physical and performed a pertinent physical examination on my patient. No changes have occurred unless specified. Time Spent With Patient Time: Total time managing care of this patient today ____ minutes.
[2022-12-15 07:32] VITALS: BP 120/70; PULSE 70; RESP 16; TEMP 36.2; O2SAT 99
[2022-12-15] MEDS: Lactated Ringers 1,000 ML 100 ML IVCONT (07:49)
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
--- NOTE | 2022-12-15 09:14 | W.PM.OPN ---
Operative Note Operative Note Date of Service: 12/15/22 Narrative: Preoperative diagnosis: [] Left mid back lipoma Postop diagnosis: [] same Procedure [] excision deep left mid back lipoma Surgeon: [] [employer] Technician: [] chun Estrada Type of Anesthesia: [] MAC Indication for surgery: [] symptomatic enlarging lipoma Findings: [] deeply situated, extending down to the back muscle, lipoma; final dimensions approximately 8 x 5 cm The patient brought to the operating room, placed on the operating table in a supine position, after adequate level of MAC anesthesia was induced, patient was placed in the right lateral decubitus position. Mid back was prepped and draped in usual sterile fashion. Patient underwent infiltration with a combination of 0.5 Marcaine with 1% lidocaine with epinephrine and a transverse incision over the premarked lipoma area of the left mid back was uneventfully performed carried down through skin, subcutaneous tissue were superior and inferior skin flaps were developed and the capsule of the lipoma was identified. Circumferential dissection using blunt and Bovie dissection was able to free the lipoma and eventfully enucleated with dimensions as described above. Specimen was sent to pathology. Wound was irrigated, secured hemostasis, and closed in the following manner; deep tissue was reapproximated using interrupted 3-0 Vicryl sutures. Interrupted inverted deep dermal 3-0 Vicryl sutures followed by running subcuticular 4-0 Monocryl were placed. Stay strips distal dressings were applied. Sponge, needle, and instrument counts were reported to be correct. Patient tolerated the procedure well and emerged anesthesia stable condition. EBL minimal
[2022-12-15 09:25] VITALS: BP 116/54; RESP 16; TEMP 36.6; O2SAT 98
[2022-12-15 09:40] VITALS: BP 116/77; PULSE 66; RESP 16; O2SAT 97
[2022-12-15] MEDS: ondansetron HCL 4 MG/2 ML VIAL IVPUSH (09:45)
[2022-12-15 09:55] VITALS: BP 139/82; PULSE 62; RESP 16; TEMP 36.6; O2SAT 98
== END | disposition home or self-care (01) ==
PROVIDERS: PCP Registered Nurse; Visit Provider Surgery
PROC: (CPT 21931; principal; 2022-12-15 08:40)
DX: D17.1 Benign lipomatous neoplasm of skin and subcutaneous tissue of trunk (principal); M19.90 Unspecified osteoarthritis, unspecified site; R00.0 Tachycardia, unspecified; R06.00 Dyspnea, unspecified; K11.7 Disturbances of salivary secretion; F32.A Depression, unspecified; F41.1 Generalized anxiety disorder; E28.2 Polycystic ovarian syndrome; Z79.84 Long term (current) use of oral hypoglycemic drugs; Z79.899 Other long term (current) drug therapy; Z98.51 Tubal ligation status; Z88.1 Allergy status to other antibiotic agents; Z86.16 Personal history of COVID-19
CPT/HCPCS: 21931; 88304; J0131; J0690; J1885; J2250; J2405; J3010

== ENCOUNTER → 2022-12-17 10:42 | Outpatient (BNVA) | payer BC, MEDICAID, SELFPAY | PROVIDERS: PCP Registered Nurse; Visit Provider Hospitalist | DX: Z13.89 Encounter for screening for other disorder (principal) ==

== ENCOUNTER → 2022-12-24 10:40 | Outpatient (BNVA) | payer BC, MEDICAID, SELFPAY | PROVIDERS: PCP Registered Nurse; Visit Provider Surgery | DX: Z13.89 Encounter for screening for other disorder (principal) ==

== ENCOUNTER 2023-02-16 07:14 | Emergency (ER) | payer BC, MEDICAID, SELFPAY ==
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
[2023-02-16 07:31] VITALS: BP 126/77; PULSE 98; TEMP 36.9; O2SAT 98
[2023-02-16 07:34] VITALS: BMI 35.7
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
[2023-02-16 09:12] VITALS: BP 142/91; PULSE 90; O2SAT 98
== END 2023-02-16 09:15 | disposition home or self-care (01) ==
PROVIDERS: Emergency Provider Emergency Medicine; PCP Registered Nurse
DX: S01.81XA Laceration without foreign body of other part of head, initial encounter (principal); S56.911A Strain of unspecified muscles, fascia and tendons at forearm level, right arm, initial encounter; M79.601 Pain in right arm; R51.9 Headache, unspecified; M54.2 Cervicalgia; Y04.2XXA Assault by strike against or bumped into by another person, initial encounter; Y93.9 Activity, unspecified; Y92.9 Unspecified place or not applicable; Y99.9 Unspecified external cause status; Z79.899 Other long term (current) drug therapy
CPT/HCPCS: 12011; 73070; 73090; 99283; 99284

== ENCOUNTER → 2023-02-22 13:09 | Outpatient (BNVA) | payer BC, MEDICAID, SELFPAY | PROVIDERS: PCP Registered Nurse; Visit Provider Internal Medicine ==

== ENCOUNTER 2023-03-18 13:33 | Outpatient (REF) | payer BC, MEDICAID, SELFPAY ==
[2023-03-18 16:34] LABS: MANUAL DIFF FLAG NO
[2023-03-18 16:58] LABS: Alanine Aminotransferase 73 U/L (0-31); Albumin Level 4.6 g/dL (3.5-5.0); Alkaline Phosphatase 101 U/L (39-117); Anion Gap 15 (12-20); Aspartate Amino Transferase 44 U/L (5-31); Bilirubin Total 0.6 mg/dL (0.0-1.0); Blood Urea Nitrogen 9 mg/dL (9-16); Calcium 10.5 mg/dL (8.4-10.2); Carbon Dioxide 22 mmol/L (22-29); Chloride 108 mmol/L (96-108); Cholesterol 171 mg/dL; Estimated Glomerular Filt Rate > 60; Glucose Random 92 mg/dL (60-115); HDL Cholesterol 31 mg/dL; Iron 82 mcg/dL (30-160); LDL Cholesterol Calculated 118 mg/dl; Percent Iron Saturation 28 % (15-50); Potassium 4.5 mmol/L (3.3-5.1); Sodium 140 mmol/L (135-145); Total Iron Binding Capacity 289 mcg/dL (228-428); Total Protein 7.5 g/dL (6.5-8.0); Triglycerides 113 mg/dL; Unsaturated Iron Binding 207 ug/dL
[2023-03-18 17:01] LABS: Basophils Absolute Auto 0.1 X10*3/uL (0.0-0.2); Basophils Percent Auto 0.6 % (0-2); Eosinophils Absolute Auto 0.1 X10*3/uL (0.0-0.4); Eosinophils Percent Auto 0.8 % (0-4); Hemoglobin 14.4 g/dl (12.0-16.0); Imm Gran Abs Auto 0.05 X10*3/uL (0.00-0.03); Imm Gran Pct Auto 0.4 % (0.0-0.4); Lymphocytes Absolute Auto 4.3 X10*3/uL (1.2-4.9); Lymphocytes Percent Auto 37.6 % (20-40); Mean Corpuscular HGB Conc 33.5 g/dl (31.0-35.0); Mean Corpuscular Hemoglobin 30.4 pg (27.0-33.0); Mean Corpuscular Volume 90.9 fL (80.0-98.0); Mean Platelet Volume 10.1 fL (9.4-12.3); Monocytes Absolute Auto 0.8 X10*3/uL (0.1-1.2); Monocytes Percent Auto 6.9 % (2-11); Neutrophils Absolute Auto 6.1 x10*3/uL (2.0-8.3); Neutrophils Percent Auto 53.7 % (45-73); Platelet Count 398 X10*3/uL (160-400); Red Blood Count 4.73 X10*6/uL (4.20-5.50); White Blood Count 11.4 X10*3/uL (4.8-10.8)
[2023-03-19 05:03] LABS: HBS Num1 12.88 mIU/mL (0-7.99); HBc Num1 0.21 S/CO (0.00-0.79); HBsAGNum1 0.43 S/CO (0.00-0.99); Hepatitis A Antibody IgM 0.19 Index (0-0.79); Hepatitis B Core Antibody Nonreactive (Nonreactive); Hepatitis B Surface Antigen Negative (Negative); ~HepC Num1 0.09 S/CO (0.00-0.79); ~Hepatitis A Antibody IgM Nonreactive (Nonreactive); ~Hepatitis B Surface Antibody REACTIVE (Nonreactive); ~Hepatitis C Antibody Nonreactive (Nonreactive)
== END 2023-03-18 13:34 | disposition home or self-care (01) ==
LOC: HO.HHCL 13:33
PROVIDERS: Visit Provider Registered Nurse
DX: R74.8 Abnormal levels of other serum enzymes (principal)
CPT/HCPCS: 36415; 80053; 80061; 83540; 85025; 86704; 86706; 86709; 86803; 87340

== ENCOUNTER 2023-05-25 09:43 | Outpatient (AMB) | payer BC, MEDICAID, SELFPAY ==
--- NOTE | 2023-05-25 09:50 | A.OFFVIS_ITS ---
Intake Vital Signs 05/25/23 09:51 Height 5 ft 6 in Weight 213 lb 13.574 oz BMI 34.5 Blood Pressure Location Lt brachial Position Sitting Intake Visit Reasons: 3 month fu Intake Note: Latoya presents in the office as a 3 month follow up. CC: She states that she only goes to have a BM once a month. She has the urge to go but when she sits there is nothing. She sometimes has blood because she has hemorrhoids. Pains all over due to not being able to pass a BM. There is a burning feeling like heartburn but PCP said that it could be her intestines. She states that she does not suffer from heartburn. Its just a burning sensation in her stomach. Vest Baster Required: No Allergies bacitracin [BACITRACIN] Allergy (Severe, Verified 05/25/23 09:52) HIVES triple antibiotic cream Allergy (Severe, Uncoded 05/25/23 09:52) hives HPI HPI Comments History of Present Illness Details 32 y.o F who is here to follow up for se marilin constipation. 11/24/22: Reports sx started almost 12y ago when she was for the first time. was complicated by severe heartburn. Since delivering the baby (vaginal delivery, not assisted, no episiotomy) has developed constipation which she describes as decreased frequency reports 1 BM per month, and associated with straining. Reports liquid BM but with feeling of incomplete voidance. Also reports stress urinary incontinence (but reports improvement over time). Has reported these sx to her REHAB MANAGER multiple times over the last few years has been doing kegel exercises daily since then. Does not recall a discussion about pelvic floor rehab. Currently takes dulcolax 10mg daily, and then adds on miralax and fleets enema PRN. Has to use an enema at least every few months. Diet: 2 boiled eggs and fruit for breakfast; lunch salad; dinner baked potato, white rice with veggies such as brocolli or sweet potato or beets. Water intake: 6 cups a day. Coffee in AM and juice with dinner. 02/22/23: Reports minimal improvement with increasing water intake, adding fiber and miralax. Was only going twice a week. However since starting Trulicity she has been having soft/loose BMs but frequency is still unchanged. 05/25/23: Unfortunately was not able to get her amitiza from pharmacy due to insurance coverage issue. Reports pharmacy called us to initiate PA but not correspondence noted in [employer]. Cont to be quite miserable from constipation, had a small bowel movement this morning after a few weeks. Also reports significant heartburn. Does take NSAIDs daily for low back pain. Reports having a barium swallow from [facility] earlier this year. [facility] Medical History Upper airway resistance syndrome Type 2 diabetes mellitus History of COVID-19 Dyspnea Arthralgia Dry mouth Tachycardia PCOS (polycystic ovarian syndrome) Depression Anxiety Surgical History S/P excision of lipoma History of tubal ligation Family History Mother Thyroid cancer Maternal Grandmother HTN (hypertension) Diabetes mellitus Family/Other Colon cancer Social History Are you a primary healthcare administration internship to a significant other at home: No Do you presently have visiting nurse or other home services: No Alcohol intake: never Patient Tobacco Use Status: Never used Tobacco Current occupational status: unemployed Current occupation: left hand Gender identity: Female Female Reproductive History Menstrual Age of Menarche: 15 Review of Systems Const All systems reviewed & are unremarkable except as noted in HPI and below Physical Exam Vital Signs: BMI result Body Mass Index 34.5 Gen appear: NAD HEENT: nonicteric Chest: no overt resp distress Abd: soft, nondistended Assessment & Plan Assessment & Plan (1) Chronic idiopathic constipation: Code(s): K59.04 - Chronic idiopathic constipation (2) GERD (gastroesophageal reflux disease): Code(s): K21.9 - Gastro-esophageal reflux disease without esophagitis Plan 1. CIC: Likely secondary to a combination of dietary factors and pelvic dyssenergia. Unfortunately Amitiza not covered by insurance. Msg sent to team RN for urgent PA processing. Recommend: - Amitiza PA to be initiated - In the meantime, cont senna in AM - Miralax BID - Fiber supplementation - Bisaodyl supp vs fleet enema as needed for rectal stimulation if no response - 2. Pyrosis Ddx include PUD, NSAID related gastritis/duodenitis/esophagitis, GERD. No red flags to warrant urgent endoscopy at this time. Would recommend high dose PPI x 4 weeks and then taper to once daily x 4 weeks. Will proceed with EGD if minimal response. Pt quite frustrated and reports has tried PPI before and unwilling to try again without testing done. Did try to review that procedure wait time for nonemergent procedures is at least 2-3 months anyway and would not recommend deferring PPI therapy till that long john if she is so symptomatic. Also reviewed the option of getting barium swallow with [facility] in the interim which she declined as well. Pt then left the office reporting she will seek a different GI referral from her PCP. Coding Level of Care Code Est Pt Level 4 (68593) Diagnoses Chronic idiopathic constipation K59.04 GERD (gastroesophageal reflux disease) K21.9
[2023-05-25 09:51] VITALS: BMI 34.5
== END 2023-05-25 11:11 | disposition home or self-care (01) ==
PROVIDERS: PCP Registered Nurse; Visit Provider Internal Medicine
DX: K59.04 Chronic idiopathic constipation (principal); K21.9 Gastro-esophageal reflux disease without esophagitis
CPT/HCPCS: 99214

== ENCOUNTER → 2023-05-25 09:43 | Outpatient (BNVA) | payer BC, MEDICAID, SELFPAY | PROVIDERS: PCP Registered Nurse; Visit Provider Internal Medicine ==

== ENCOUNTER 2023-07-25 03:24 | Emergency (ER) | payer BC, MEDICAID, SELFPAY ==
--- NOTE | ~2023-07-25 | XR_ITS ---
EXAMINATION: XR CHEST CLINICAL INFORMATION: Cough COMPARISON: 07/15/2022 TECHNIQUE: Frontal view of the chest was obtained. FINDINGS: No significant abnormality is noted involving the heart, lungs, mediastinum, bony thorax or soft tissues. XR/XR chest 1V IMPRESSION: Unremarkable examination.
[2023-07-25 03:28] VITALS: BP 119/72; PULSE 79; RESP 20; TEMP 36.9; O2SAT 97; BMI 33.7
[2023-07-25 04:12] VITALS: BP 114/81; PULSE 90; RESP 14; TEMP 36.8; O2SAT 99
[2023-07-25 04:26] LABS: MANUAL DIFF FLAG NO
[2023-07-25 04:28] LABS: Basophils Absolute Auto 0.1 X10*3/uL (0.0-0.2); Basophils Percent Auto 0.4 % (0-2); Eosinophils Absolute Auto 0.2 X10*3/uL (0.0-0.4); Eosinophils Percent Auto 1.1 % (0-4); Hematocrit 39.9 % (37.0-47.0); Hemoglobin 13.7 g/dl (12.0-16.0); Imm Gran Abs Auto 0.05 X10*3/uL (0.00-0.03); Imm Gran Pct Auto 0.3 % (0.0-0.4); Lymphocytes Absolute Auto 4.3 X10*3/uL (1.2-4.9); Lymphocytes Percent Auto 28.2 % (20-40); Mean Corpuscular HGB Conc 34.3 g/dl (31.0-35.0); Mean Corpuscular Hemoglobin 30.4 pg (27.0-33.0); Mean Corpuscular Volume 88.7 fL (80.0-98.0); Mean Platelet Volume 9.6 fL (9.4-12.3); Monocytes Percent Auto 6.7 % (2-11); Neutrophils Absolute Auto 9.6 x10*3/uL (2.0-8.3); Neutrophils Percent Auto 63.3 % (45-73); Platelet Count 361 X10*3/uL (160-400); Red Cell Distribution Width 12.7 % (11.0-16.0); White Blood Count 15.2 X10*3/uL (4.8-10.8)
[2023-07-25 04:40] LABS: IDNOW Serial# 6674DD1D; Strep A Nucleic Acid Negative (Negative)
[2023-07-25 04:43] LABS: Alanine Aminotransferase 21 U/L (0-31); Albumin Level 4.4 g/dL (3.5-5.0); Alkaline Phosphatase 100 U/L (39-117); Anion Gap 13 (12-20); Aspartate Amino Transferase 15 U/L (5-31); Bilirubin Total 0.4 mg/dL (0.0-1.0); Blood Urea Nitrogen 8 mg/dL (9-16); Calcium 9.2 mg/dL (8.4-10.2); Carbon Dioxide 19 mmol/L (22-29); Chloride 109 mmol/L (96-108); Creatinine Clr Calc Pharmacy 112.5; Estimated Glomerular Filt Rate > 60; Glucose Random 103 mg/dL (60-115); Sodium 137 mmol/L (135-145); Total Protein 7.2 g/dL (6.5-8.0)
--- NOTE | 2023-07-25 05:01 | ED_ITS ---
HPI - URI/Sore Throat General Chief Complaint: Upper Respiratory Symptoms Stated Complaint: flu like symptoms Time Seen by Provider: 07/25/23 04:51 Source: patient Mode of arrival: ambulatory Limitations: no limitations History of Present Illness HPI Narrative: Patient comes to the emergency room complaining of 1 week of a barky cough, body aches, sore throat. Patient states that her 2 young children have barky cough as well. Patient denies fever chills. Patient denies nausea vomiting, no abdominal pain, no UTI symptoms. Related Data Home Medications Medication Instructions Recorded Confirmed metformin 500 mg tablet 500 mg PO DAILY 11/17/22 12/08/22 spironolactone 25 mg tablet 25 mg PO DAILY 11/17/22 12/08/22 dulaglutide 0.75 mg/0.5 mL mg subcut 02/22/23 subcutaneous pen injector (Trulicity) olmesartan 5 mg tablet 5 mg PO DAILY 02/22/23 Previous Rx's Medication Instructions Recorded medroxyprogesterone 150 mg/mL 150 mg IM [id number] #1 mL 01/13/21 intramuscular suspension (Depo-Provera) ibuprofen 600 mg tablet 600 mg PO Q8H PRN pain #14 tabs 11/05/22 budesonide-formoterol HFA 160 2 puff inhalation BID 30 days 12/17/22 mcg-4.5 mcg/actuation aerosol #10.2 grams inhaler (Symbicort) furosemide 20 mg tablet (Lasix) 20 mg PO DAILY 3 days #3 tabs 12/17/22 naproxen 500 mg tablet (Naprosyn) 500 mg PO BID #20 tabs 02/16/23 Allergies Allergy/AdvReac Type Severity Reaction Status Date / Time bacitracin [BACITRACIN] Allergy Severe HIVES Verified 07/25/23 03:28 triple antibiotic cream Allergy Severe hives Uncoded 05/25/23 09:52 Review of Systems 2 Review of Systems: Constitutional : No Weight loss, No Fever, No Chills, No Night Sweats, No Fatigue, No Malaise ENT/Mouth : No Hearing loss, No Ear Pain, No Nasal Congestion, No Sinus Pain, No Hoarseness, complaining of sore throat, No Rhinorrhea, No Swallowing Difficulty Eyes: No Eye Pain, No Swelling, No Redness, No Foreign Body, No Discharge, No Vision Changes Cardiovascular : No Chest Pain, No SOB, No Dyspnea on Exertion, No Orthopnea, No Edema, No Palpitations Respiratory : Complaining of dry barky cough for 1 week, No Sputum, No Wheezing, No Smoke Exposure, No Dyspnea Gastrointestinal : No Nausea, No Vomiting, No Diarrhea, No Constipation, No abdominal Pain, No Hematochezia, No Melena Genitourinary : no irregular bleeding, No Dysuria, No Urinary Frequency, No Hematuria, No Urinary Incontinence, No Urgency, No Flank Pain, No Urinary Flow Changes, No Hesitancy Musculoskeletal : No joint pain, No Myalgias, No Joint Swelling Skin : No Skin Lesions, No rash Neuro : No Weakness, No Numbness, No Paresthesias, No Loss of Consciousness, No Dizziness, No Headache Psych : No Anxiety/Panic, No Depression, No SI/HI/AH/VH, No Social Issues, Heme/Lymph: No Bruising, No Bleeding,No Lymphadenopathy Endocrine : No Polyuria, No Polydipsia, No Temperature Intolerance [facility] Past Medical History Medical History Upper airway resistance syndrome Type 2 diabetes mellitus History of COVID-19 Dyspnea Arthralgia Dry mouth Tachycardia PCOS (polycystic ovarian syndrome) Depression Anxiety Surgical History S/P excision of lipoma History of tubal ligation Family History Family History Mother Thyroid cancer Maternal Grandmother HTN (hypertension) Diabetes mellitus Family/Other Colon cancer Social History Social History Are you a primary day care provider to a significant other at home: No Do you presently have visiting nurse or other home services: No Alcohol intake: never Patient Tobacco Use Status: Never used Tobacco Smoked in Last 30 Days: No Use of substances other than those prescribed or required for medical reasons: No Advance Directives: No Advance Directives Information Provided: No Patient : No Current occupational status: unemployed Current occupation: left hand Gender identity: Female Physical Exam 2 Vital Signs: Vital Signs: Last Vital Signs Temp 98.2 F 07/25/23 04:12 Pulse 90 07/25/23 04:12 Resp 14 07/25/23 04:12 BP 114/81 07/25/23 04:12 Pulse Ox 99 07/25/23 04:12 O2 Del Method Room Air 07/25/23 04:12 BMI result Body Mass Index 33.7 Const: Other: Appearance: Alert. Oriented X3. No acute distress. Eyes: Pupils equal, round and reactive to light. ENT: Pharynx normal. Neck: Normal inspection. Neck supple. No lymph nodes noted. No crepitus CVS: Normal heart rate and rhythm. Pulses normal. Normal S1 and S2 Respiratory: No respiratory distress. Breath sounds normal. No Wheezing. No rales Abdomen: Soft and nontender. No rigidity. No distention. Skin: Skin warm and dry. Normal skin color. Normal skin turgor. Extremities: No lower extremity edema. No Lacerations. No Rash Neuro: Oriented X 3. No motor deficit. No sensory deficit. Moving all extremities. No slurred speech. CN 2 through 12 grossly intact Psych: calm, cooperative, normal affect Medications Administered Discontinued Medications Generic Name Dose Route Start Last Admin Trade Name Yangq PRN Reason Stop Dose Admin Dexamethasone Sodium Phosphate 10 mg 07/25/23 05:00 07/25/23 05:07 Dexamethasone Sod Phosphate 10 Mg/Ml Vial IVPUSH 07/25/23 05:01 10 mg ONCE ONE Administration Medical Decision Making Medical Decision Making MDM Narrative: -my interpretation of labs, hematology 15.2, likely reactive leukocytosis, normal chemistry. Patient tested negative for COVID and strep. -my interpretation of chest x-ray: No pneumonia -patient has a bit of a barky cough, given 1 dose of dexamethasone in the ED. -radiology has not reported yet the chest x-ray findings. I do not believe the patient has pneumonia. Patient does not want to stay for the radiology report Differential Diagnosis Differential Diagnoses: The differential diagnosis associated with the presentation includes (Croup, COVID, influenza, viral URI, viral pharyngitis) Lab Data MDM Lab Attestation statement: I reviewed the patient's lab results. 07/25/23 04:21 07/25/23 04:21 Labs: Lab Results 07/25/23 Range/Units 04:21 WBC 15.2 H (4.8-10.8) X10*3/uL RBC 4.50 (4.20-5.50) X10*6/uL Hgb 13.7 (12.0-16.0) g/dl Hct 39.9 (37.0-47.0) % MCV 88.7 (80.0-98.0) fL MCH 30.4 (27.0-33.0) pg MCHC 34.3 (31.0-35.0) g/dl RDW 12.7 (11.0-16.0) % Plt Count 361 (160-400) X10*3/uL MPV 9.6 (9.4-12.3) fL Immature Gran % (Auto) 0.3 (0.0-0.4) % Neut % (Auto) 63.3 (45-73) % Lymph % (Auto) 28.2 (20-40) % [place] % (Auto) 6.7 (2-11) % Eos % (Auto) 1.1 (0-4) % Baso % (Auto) 0.4 (0-2) % Lymph # (Auto) 4.3 (1.2-4.9) X10*3/uL [place] # (Auto) 1.0 (0.1-1.2) X10*3/uL Eos # (Auto) 0.2 (0.0-0.4) X10*3/uL Baso # (Auto) 0.1 (0.0-0.2) X10*3/uL Abs Immat Gran (auto) 0.05 H (0.00-0.03) X10*3/uL Absolute Neuts (auto) 9.6 H (2.0-8.3) x10*3/uL Absolute Nucleated RBC 0.000 (0.0-0.012) X10*3/uL Nucleated RBC % (auto) 0.0 (0.0-0.2) /100WBC Sodium 137 (135-145) mmol/L Potassium 4.0 (3.3-5.1) mmol/L Chloride 109 H (96-108) mmol/L Carbon Dioxide 19 L (22-29) mmol/L Anion Gap 13 (12-20) BUN 8 L (9-16) mg/dL Creatinine 0.84 (0.5-1.4) mg/dL Estim Creat Clear Calc 112.5 Estimated GFR > 60 Random Glucose 103 (60-115) mg/dL Calcium 9.2 D (8.4-10.2) mg/dL Total Bilirubin 0.4 (0.0-1.0) mg/dL AST 15 (5-31) U/L ALT 21 (0-31) U/L Alkaline Phosphatase 100 (39-117) U/L Total Protein 7.2 (6.5-8.0) g/dL Albumin 4.4 (3.5-5.0) g/dL Influenza Type A (PCR) NEGATIVE (Negative) Influenza Type B (PCR) NEGATIVE (Negative) RSV RNA Qual (PCR) NEGATIVE (Negative) SARS-CoV-2 RNA (RT-PCR) NEGATIVE (Negative) S. pyogenes GrpA GENESIS Negative (Negative) Independent Interpretation I performed an independent interpretation of an: Plain X-Ray Discharge Plan Discharge Clinical Impression: Viral URI, Cough in adult Patient Disposition: Home, Self-Care Instructions: Viral Syndrome (ED), Acute Cough (ED) Additional Instructions: Please follow-up with your primary care physician tomorrow. If you have any worsening or new symptoms, please return to the emergency room or call 911 Prescriptions: No Action ibuprofen 600 mg tablet 600 mg PO Q8H PRN (Reason: pain) Qty: 14 0RF naproxen [Naprosyn] 500 mg tablet 500 mg PO BID Qty: 20 0RF medroxyprogesterone [Depo-Provera] 150 mg/mL suspension 150 mg IM [id number] Qty: 1 3RF olmesartan 5 mg tablet 5 mg PO DAILY Trulicity 0.75 mg/0.5 mL pen injector subcut spironolactone 25 mg tablet 25 mg PO DAILY metformin 500 mg tablet 500 mg PO DAILY budesonide-formoterol [Symbicort] 160-4.5 mcg/actuation HFA aerosol inhaler 2 puff inhalation BID 30 Days Qty: 10.2 11RF furosemide [Lasix] 20 mg tablet 20 mg PO DAILY 3 Days Qty: 3 0RF
[2023-07-25 05:05] LABS: Influenza A PCR NEGATIVE (Negative); Influenza B PCR NEGATIVE (Negative); Resp Syncy Virus RNA Qual PCR NEGATIVE (Negative); SARS COV2 PCR INHOUSE NEGATIVE (Negative)
[2023-07-25] MEDS: dexAMETHasone sod phosphate 10 MG/ML VIAL IVPUSH (05:07)
--- NOTE | 2023-07-25 05:41 | PC.NURSE ---
10mg po decadron given to pt in apple juice. pt able to tolerate PO fluids
[2023-07-25 06:21] VITALS: BP 116/71; PULSE 90; RESP 16; TEMP 36.9; O2SAT 98
--- NOTE | 2023-07-25 06:22 | PC.NURSE ---
pt reports no relief from decadron. pt verbalized frustration with diagnosis of viral URI. vss. pt ambulatory at discharge. pt provided with discharge packet. pt verbalized understanding of discharge plan
== END 2023-07-25 06:25 | disposition home or self-care (01) ==
PROVIDERS: Emergency Provider Emergency Medicine; PCP Registered Nurse
DX: J06.9 Acute upper respiratory infection, unspecified (principal); R05.9 Cough, unspecified; M79.10 Myalgia, unspecified site; J02.9 Acute pharyngitis, unspecified; Z20.822 Contact with and (suspected) exposure to COVID-19; Z20.828 Contact with and (suspected) exposure to other viral communicable diseases; Z79.899 Other long term (current) drug therapy
CPT/HCPCS: 0241U; 36415; 71045; 80053; 85025; 87651; 99284; J1100

== ENCOUNTER 2023-08-06 14:40 | Outpatient (REF) | payer BC, MEDICAID, SELFPAY ==
[2023-08-08 17:14] LABS: TS Negative Control Passed; TS Panel A 3; TS Panel B 1; TS Positive Control Passed; TSpotTB Negative (Negative)
[2023-08-10 02:42] LABS: Mumps Virus IgG Antibody <9.00 AU/mL; Rubeola IgG (Measles) >300.00 AU/mL
== END 2023-08-06 14:41 | disposition home or self-care (01) ==
LOC: HO.HHCL 14:40
PROVIDERS: Visit Provider Registered Nurse
DX: Z02.89 Encounter for other administrative examinations (principal); Z11.1 Encounter for screening for respiratory tuberculosis
CPT/HCPCS: 36415; 86481; 86735; 86762; 86765

== ENCOUNTER 2023-10-08 09:22 | Outpatient (REF) | payer BC, MEDICAID, SELFPAY ==
--- NOTE | ~2023-10-08 | XR_ITS ---
EXAMINATION: XR ABDOMEN KUB CLINICAL INDICATION: Chronic constipation. COMPARISON: 11/05/2022 TECHNIQUE: AP view of the abdomen. FINDINGS: The lung bases are excluded from the [id number]. There is moderate gas and stool throughout the colon and in the rectum. No abnormally dilated loops of small bowel are seen. Regional osseous structures are intact. XR/XR abdomen 1V IMPRESSION: Moderate stool burden.
[2023-10-08 12:25] LABS: TSH reflex Free T4 0.66 uIU/mL (0.32-4.0)
== END 2023-10-08 09:23 | disposition home or self-care (01) ==
LOC: HO.HHCL 09:22
PROVIDERS: Visit Provider Registered Nurse
DX: R10.13 Epigastric pain (principal); K59.09 Other constipation
CPT/HCPCS: 36415; 74018; 84443; 87338

== ENCOUNTER 2023-10-23 10:45 | Emergency (ER) | payer BC, MEDICAID, SELFPAY ==
--- NOTE | ~2023-10-23 | XR_ITS ---
EXAMINATION: XR CERVICAL SPINE CLINICAL INFORMATION: Pressure, numbness COMPARISON: None available. TECHNIQUE: 3 views of the cervical spine were obtained. FINDINGS: No prevertebral soft tissue swelling. Significant spurring anteriorly and to lesser extent posteriorly at C5-C6. No fracture subluxation. Posterior elements appear intact. XR/XR cervical spine 2V IMPRESSION: No acute fracture or subluxation. Degenerative changes as above.
[2023-10-23 10:50] VITALS: BP 137/77; PULSE 81; RESP 16; TEMP 36.9; O2SAT 98; BMI 33.4
--- NOTE | 2023-10-23 10:59 | ED_ITS ---
HPI - Ear Problem General Chief complaint: Ear Problems Stated complaint: ear pain?? Time Seen by Provider: 10/23/23 10:52 Source: patient Mode of arrival: ambulatory Limitations: no limitations History of Present Illness HPI Narrative: 33 yo female with history of DM, HTN here with multiple complaints. Patient reports since yesterday she has had pressure, dull hearing and a pulsing sound in her left ear. No injury or trauma. No recent illnesses, cough or colds. Also c/o upper neck numbness x 1 month w/ deep pain . Denies injury or trauma. No numbness, tingling, weakness of the UE. No headache, neck stiffness, fevers or chills. Related Data Home Medications Medication Instructions Recorded Confirmed metformin 500 mg tablet 500 mg PO DAILY 11/17/22 12/08/22 spironolactone 25 mg tablet 25 mg PO DAILY 11/17/22 12/08/22 dulaglutide 0.75 mg/0.5 mL mg subcut 02/22/23 subcutaneous pen injector (Trulicity) olmesartan 5 mg tablet 5 mg PO DAILY 02/22/23 Previous Rx's Medication Instructions Recorded medroxyprogesterone 150 mg/mL 150 mg IM [id number] #1 mL 01/13/21 intramuscular suspension (Depo-Provera) ibuprofen 600 mg tablet 600 mg PO Q8H PRN pain #14 tabs 11/05/22 budesonide-formoterol HFA 160 2 puff inhalation BID 30 days 12/17/22 mcg-4.5 mcg/actuation aerosol #10.2 grams inhaler (Symbicort) furosemide 20 mg tablet (Lasix) 20 mg PO DAILY 3 days #3 tabs 12/17/22 naproxen 500 mg tablet (Naprosyn) 500 mg PO BID #20 tabs 02/16/23 loratadine 10 mg tablet (Claritin) 10 mg PO DAILY PRN allergic 10/23/23 symptoms #30 tabs triamcinolone acetonide 55 mcg 2 spray intranasal DAILY #16.9 mL 10/23/23 nasal spray aerosol (Nasacort Allergy) Allergies Allergy/AdvReac Type Severity Reaction Status Date / Time bacitracin [BACITRACIN] Allergy Severe HIVES Verified 10/23/23 11:23 triple antibiotic cream Allergy Severe hives Uncoded 05/25/23 09:52 Review of Systems Review of Systems: Yes all other systems are reviewed and are negative Constitutional: Constitutional: Reports no additional constitutional complaints, Denies body ache(s), Denies chills, Denies fever(s), Denies headache(s) and Denies weakness Eyes: Eyes: Reports no additional eye complaints and Denies change in vision ENT: Reports system reviewed and no additional complaints, except as documented, Denies dizziness, Denies ear discharge, Reports otalgia, Denies headache(s), Reports hearing loss, Denies nasal congestion, Denies nasal discha rge, Reports neck pain and Denies tinnitus Cardiovascular: Cardiovascular: Reports no additional cardiovascular complaints, Denies chest pain, Denies leg edema and Denies dyspnea Respiratory: Respiratory: Reports no additional respiratory complaints, Denies cough and Denies dyspnea Gastrointestinal: Gastrointestinal: Reports no additional gastrointestinal complaints, Denies abdominal pain, Denies diarrhea, Denies nausea and Denies vom iting Genitourinary: Genitourinary: Reports no additional female genitourinary complaints and Denies urinary incontinence Musculoskeletal: Musculoskeletal: Reports no additional musculoskeletal complaints, Denies back pain, Denies arthralgias, Denies joint swelling, Reports neck pain, Reports numbness and Denies tingling Integumentary/Breasts: Skin/Breast: Reports system reviewed and no additional complaints, except as docu and Denies rash Neurologic: Reports system reviewed and no additional complaints, except as documented, Denies Abnormal speech present, Denies dizziness, Denies headache(s), Reports numbness, Denies tingling and Denies weakness PMFSH Past Medical History Attestation statement: The following information was validated with the patient. Source: old records reviewed and nursing notes reviewed Medical History Upper airway resistance syndrome Type 2 diabetes mellitus History of COVID-19 Dyspnea Arthralgia Dry mouth Tachycardia PCOS (polycystic ovarian syndrome) Depression Anxiety Surgical History S/P excision of lipoma History of tubal ligation Family History Family History Mother Thyroid cancer Maternal Grandmother HTN (hypertension) Diabetes mellitus Family/Other Colon cancer Social History Social History Are you a primary home care assistant to a significant other at home: No Do you presently have visiting nurse or other home services: No Alcohol intake: never Patient Tobacco Use Status: Never used Tobacco Smoked in Last 30 Days: No Use of substances other than those prescribed or required for medical reasons: No Advance Directives: No Advance Directives Information Provided: No Current occupational status: unemployed Current occupation: left hand Gender identity: Female Physical Exam Vital Signs: Vital Signs: Last Vital Signs Temp 98.4 F 10/23/23 10:50 Pulse 81 10/23/23 10:50 Resp 16 10/23/23 10:50 BP 137/77 10/23/23 10:50 Pulse Ox 98 10/23/23 10:50 O2 Del Method Room Air 10/23/23 10:50 BMI result Body Mass Index 33.4 Const: General: cooperative, healthy appearing, comfortable and no acute distress Orientation/consciousness: patient oriented x3 Limitations: no limitations HEENT: Head: Yes normal to inspection Ears: hearing grossly normal bilaterally, EAC's normal, mastoids normal, no periauricular adenopathy and TM abnormal (Left TM effusion, right TM normal) General nose exam: Normal external nose present Face and sinus: Yes normal facial exam Mouth: Normal oral and palatal mucosa present Throat: Yes posterior oropharynx normal and Yes tonsils normal Eyes: General: appearance normal, both eyes and all related structures Pupils: Equal, round and reactive pupils present Neck: Other: Mild TTP to the mid/upper cervical spine with no step offs or deformities Patient reports decreased sensation feeling on my palpation but is able to feel it Neck: Yes normal visual inspection, Yes no lymphadenopathy and Yes no meningeal signs Chest: Chest palpation & inspection: normal inspection of the chest Resp: Effort & Inspection: normal respiratory effort Auscultation: clear to auscultation bilaterally Cardio: Rate: regular rate Rhythm: regular rhythm Peripheral pulses: Peripheral pulses 2+ throughout GI: Inspection: Yes normal to inspection Palpation (GI): Soft to palpation and nontender Auscultation: normal bowel sounds Back/Spine/Pelvis: Thoracic/Lumbar Spine: thoracic and lumbar spine normal to inspection Skin: General skin exam: no rashes or lesions noted Neuro: General: patient oriented x3, moves all extremities, no meningeal signs, no focal motor deficits and normal sensation to monofilament Cranial nerves: Yes CN's II-XII intact bilaterally, Yes Equal, round and reactive pupils present, Yes Bilaterally intact EOM present, Yes Nystagmus not present, Yes Normal facial strength present and Yes Midline tongue present Cognition (Neuro): normal cognition Speech: No Abnormal speech present Gait exam (Neuro): Normal gait present Motor exam (neuro): 5/5 motor strength present throughout Sensory Exam: Normal double simultaneous stimulation for sensation Deep tendon reflexes (DTR's): Right triceps reflex intensity grade: 2+, Left triceps reflex intensity grade: 2+, Rt Biceps (C5, C6): 2+, Left biceps reflex intensity grade: 2+, Right brachioradialis reflex intensity grade: 2+ and Left brachioradialis reflex intensity grade: 2+ Extrem: General: Yes normal to inspection Course Course Course Narrative: 1300- x-ray shows no acute fracture. Patient eloped from the emergency room. I did call and speak to her and tell her her results over the phone. Medical Decision Making Medical Decision Making [facility] Narrative: 33 yo female with history of DM, HTN here with multiple complaints. Patient reports since yesterday she has had pressure, dull hearing and a pulsing sound in her left ear. No injury or trauma. No recent illnesses, cough or colds. Also c/o upper neck numbness x 1 month w/ deep pain . Denies injury or trauma. No numbness, tingling, weakness of the UE. No headache, neck stiffness, fevers or chills. on exam patient has left TM effusion with no evidence of an AOM, external ear infection, mastoiditis, malignant otitis externa or perforation will be treated with Claritin, Nasacort and follow up outpatient with primary she has tenderness on palpation to the mid and lower cervical spine with a normal neurological exam with no focal deficits or red flag symptoms. will check x-ray Differential Diagnosis Differential Diagnoses: The differential diagnosis associated with the presentation includes cervical sprain, cervical strain low suspicion for malignancy, cord compression, cauda equina, epidural abscess, fracture TM effusion. no evidence of AOM, malignant otitis externa, mastoiditis, perforation Admission/Observation Consideration of admission/observation: Escalation of care including admission/observation considered Patient complaining of neck pain for greater than 1 month with normal x-rays. No neurological deficits or red flag symptoms to suggest need for urgent MRI Lab Data [facility] Lab Attestation statement: I reviewed the patient's lab results. Independent Interpretation I performed an independent interpretation of an: Plain X-Ray Interpretation: I independently reviewed the x-ray and agree with the rad report Radiology Impression Discussion of test interpretation with radiology: I have reviewed the radiologist's reading. Radiologist Impression: [address] [address] XRay Report Signed Patient: Latoya Barreto MR#: [id number] : 1990 Acct:[id number] Age/Sex: 33 / F ADM Date: 10/23/23 Loc: .ED Attending Dr: Ordering Physician: Sharifa Diehl NP Date of Service: 10/23/23 Procedure(s): XR cervical spine 2V Accession Number(s): [id number] cc: Inga Ramirez [facility]; Sharifa Diehl NP~ EXAMINATION: XR CERVICAL SPINE CLINICAL INFORMATION: Pressure, numbness COMPARISON: None available. TECHNIQUE: 3 views of the cervical spine were obtained. FINDINGS: No prevertebral soft tissue swelling. Significant spurring anteriorly and to lesser extent posteriorly at C5-C6. No fracture subluxation. Posterior elements appear intact. XR/XR cervical spine 2V IMPRESSION: No acute fracture or subluxation. Degenerative changes as above. Tests considered The following testing was considered but not selected: Patient complaining of neck pain for greater than 1 month with normal x-rays. No neurological deficits or red flag symptoms to suggest need for urgent MRI Prescription Management I considered prescription management with: Pain Medication Discharge Plan Discharge Clinical Impression: Acute effusion of left ear, Acute neck pain Patient Disposition: Elopement Instructions: Earache (ED) Prescriptions: New loratadine [Claritin] 10 mg tablet 10 mg PO DAILY PRN (Reason: allergic symptoms) Qty: 30 0RF triamcinolone acetonide [Nasacort Allergy] 55 mcg aerosol,spray 2 spray intranasal DAILY Qty: 16.9 0RF Rx Instructions: administer into each nostril No Action ibuprofen 600 mg tablet 600 mg PO Q8H PRN (Reason: pain) Qty: 14 0RF naproxen [Naprosyn] 500 mg tablet 500 mg PO BID Qty: 20 0RF medroxyprogesterone [Depo-Provera] 150 mg/mL suspension 150 mg IM [id number] Qty: 1 3RF olmesartan 5 mg tablet 5 mg PO DAILY Trulicity 0.75 mg/0.5 mL pen injector subcut spironolactone 25 mg tablet 25 mg PO DAILY metformin 500 mg tablet 500 mg PO DAILY budesonide-formoterol [Symbicort] 160-4.5 mcg/actuation HFA aerosol inhaler 2 puff inhalation BID 30 Days Qty: 10.2 11RF furosemide [Lasix] 20 mg tablet 20 mg PO DAILY 3 Days Qty: 3 0RF
== END 2023-10-23 13:14 | disposition left against medical advice (07) ==
PROVIDERS: Emergency Provider Internal Medicine; PCP Registered Nurse
DX: H92.02 Otalgia, left ear (principal); M54.2 Cervicalgia; E11.9 Type 2 diabetes mellitus without complications; I10 Essential (primary) hypertension; Z79.84 Long term (current) use of oral hypoglycemic drugs; Z79.85 Long-term (current) use of injectable non-insulin antidiabetic drugs; Z79.899 Other long term (current) drug therapy
CPT/HCPCS: 72040; 99283

== ENCOUNTER 2024-05-05 14:04 | Outpatient (REF) | payer BC, MEDICAID, SELFPAY ==
[2024-05-05 17:08] LABS: TSH reflex Free T4 0.66 uIU/mL (0.32-4.0)
== END 2024-05-05 14:05 | disposition home or self-care (01) ==
LOC: HO.HHCL 14:04
PROVIDERS: Visit Provider Registered Nurse
DX: R13.10 Dysphagia, unspecified (principal)
CPT/HCPCS: 36415; 84443

== ENCOUNTER 2024-05-12 15:49 | Outpatient (REF) | payer OTHER, MEDICAID, SELFPAY ==
--- NOTE | ~2024-05-12 | US_ITS ---
EXAMINATION: US THYROID CLINICAL INFORMATION: 33-year-old female with new dysphagia. Question thyroid enlargement of right lobe. COMPARISON: CT soft tissue neck with contrast 10/22/2022. Ultrasound soft tissue neck 06/30/2022. TECHNIQUE: Linear transducer grayscale and color Doppler examination with attention to the region of the thyroid. FINDINGS: SIZE: Measurements of the thyroid lobes and nodules are given in sagittal, anteroposterior and transverse dimensions respectively. Right Thyroid Lobe: 6.7 x 1.7 x 1.9 cm, volume 11.2 mL. Parenchyma: The gland echotexture is homogeneous. Thyroid vascularity is normal. Left Thyroid Lobe: 6.0 x 1.8 x 1.9 cm, volume 10.8 mL. Parenchyma: The gland echotexture is homogeneous. Thyroid vascularity is normal. Isthmus: 0.5 cm in maximum AP dimension. No focal thyroid nodule is seen. NODES: No lymphadenopathy is seen in the tissue surrounding the thyroid gland. US/US thyroid IMPRESSION: Normal-appearing thyroid. ACR TI-RADS RECOMMENDATION REFERENCE: Ultrasound-guided fine-needle aspiration, followup ultrasound, no further follow up. * TR1 (0 point) and TR2 (2 points): No FNA or follow up. * TR3 (3 points): FNA if more than or equal to 2.5 cm in maximum dimension, followup ultrasound in 1, 3 and 5 years if 1.5 to 2.4 cm in maximum dimension. * TR4 (4-6 points): FNA if more than or equal to 1.5 cm in maximum dimension, followup ultrasound in 1, 2, 3 and 5 years if 1 to 1.4 cm in maximum dimension. * TR5 (more than or equal to 7 points): FNA if more than or equal to 1 cm in maximum dimension, followup ultrasound every year for 5 years if 0.5 to 0.9 cm in maximum dimension. * TR3, TR4 or TR5 nodules that are below the size threshold for followup receive no follow up. Electronically signed by: Ja Watts MD 05/24/2024 12:20 AM EDT
== END 2024-05-12 15:50 | disposition home or self-care (01) ==
LOC: HO.US 15:49
PROVIDERS: PCP Registered Nurse; Visit Provider Registered Nurse
DX: R13.10 Dysphagia, unspecified (principal); R94.6 Abnormal results of thyroid function studies
CPT/HCPCS: 76536

== ENCOUNTER 2024-08-09 17:56 | Outpatient (REF) | payer OTHER, MEDICAID, SELFPAY ==
--- OUTSIDE RECORDS SUMMARY | 2024-08-15 22:07 | XMS_ITS | Continuity of Care Document ---
Author Organization [facility] Address [address] [place] [address], [address] [place] [address]- Care Team Providers Care Line Maintenance Technician Name Role Phone Lejunior CADD INSTRUCTOR, Inga [facility] Care Phys[id number] Date[facility]s): 08/07/[facility] - 08/14/24 [facility] [address] [place] [address], [address] [place] [address]- Attending Physician: Mor SANCHEZ, Lissy Streeter Referring Physician: Arti Bauman MD Encounter Type: Office Visit Allergies, Adverse Reactions, Alerts Substance Criticality Severity Reaction Reaction Severity Status bacitracin Hives Active Medications amitriptyline 10 mg oral tablet 10 mg, 1, tablet, By Mouth, Daily at bedtime, May increase to 2 tablets after 4 weeks., # 90 tablet, Refills 4, Tot. Refills 4, Maintenance, 02/15/24 3:53:00 PM EDT, Route to Pharmacy Electronically, [facility]/pharmacy #[id number], Partial fill upon patient request if the prescription is for a schedule II opioid drug., 167.6, cm, 02/15/24 15:38:00 EDT, Height, 98.9, kg, 01/04/24 10:03:00 EDT, Dry Weight Start Date: 02/15/24 Status: Ordered Quantity: 90.0 Unit: tablet Repeat number: 5 Indication: Unspecified abdominal pain budesonide-formoterol 160 mcg-4.5 mcg/inh inhalation aerosol with adapter Refills 0, Maintenance, 01/04/24 10:11:00 AM EDT Start Date: 01/04/24 Status: Ordered Repeat number: 1 dicyclomine 10 mg oral capsule 1-2 capsule, By Mouth, 4 times a day, PRN abdominal pain, # 90 capsule, 1 Refills, Maintenance, 12/14/23 3:17:00 PM EDT, Capsule, [facility]/pharmacy #[id number], Partial fill upon patient request if the prescription is for a schedule II opioid drug., 168, cm, 12/14/23 14:55:00 EDT, Height, 100.5, kg, 01/21/22 6:4 7:00 EDT, Dry Weight Start Date: 12/14/23 Status: Ordered Quantity: 90.0 Unit: capsule Repeat number: 2 Indication: Constipation, unspecified Imodium A-D 2 mg oral tablet 2 mg, 1, tablet, By Mouth, Every 4 hours, PRN, # 60 tablet, Refills 0, Tot. Refills 0, Maintenance,for loose stool, 02/15/24 3:58:00 PM EDT, Route to Pharmacy Electronically, [facility]/pharmacy #[id number], Partial fill upon patient request if the prescription is for a schedule II opioid drug., 167.6, cm, 02/15/24 15:38:00 EDT, Height, 98.9, kg, 01/04/24 10:03:00 EDT, Dry Weight Start Date: 02/15/24 Status: Ordered Quantity: 60.0 Unit: tablet Repeat number: 1 Indication: Diarrhea, unspecified medroxyPROGESTERone 150 mg/mL intramuscular suspension 1 mL = 150 mg, Intramuscular, Every 3 months, # 1 mL, 3 Refills, Maintenance, 05/16/24 11:14:00 AM EDT, Suspension, [facility], Partial fill upon patient request if the prescription is for a schedule II opioid drug., 167.6, cm, 02/15/24 15:38:00 EDT, Height, 98.9, kg, 01/04/24 10:03:00 EDT, Dry Weight Start Date: 05/16/24 Status: Ordered Quantity: 1.0 Unit: mL Repeat number: 4 Metformin = 500 mg, By Mouth, Daily, 0 Refills, Maintenance, 01/19/22 4:21:00 PM EDT, Partial fill upon patient request if the prescription is for a schedule II opioid drug. Start Date: 01/19/22 Status: Ordered Repeat number: 1 olmesartan 5 mg oral tablet 2 tablet = 10 mg, By Mouth, Daily, 0 Refills, Maintenance, 12/14/23 2:59:00 PM EDT, Partial fill uponpatient request if the prescription is for a schedule II opioid drug. Start Date: 12/14/23 Status: Ordered Repeat number: 1 Spironolactone By Mouth, 0 Refills, Maintenance, 12/14/23 2:58:00 PM EDT, Partial fill upon patient request if the prescription is for a schedule II opioid drug. Start Date: 12/14/23 Status: Ordered Repeat number: 1 spironolactone 25 mg oral tablet 90 each, 0 Refill(s), TAKE 1 TABLET BY MOUTH EVERY DAY IN THE MORNING, Refills 0, 02/15/24 3:52:00 PM EDT, Partial fill upon patient request if the prescription is for a schedule II opioid drug. Start Date: 02/15/24 Status: Ordered Repeat number: 1 Trulance 3 mg oral tablet 1 tablet = 3 mg, By Mouth, Daily, # 30 tablet, 0 Refills, Maintenance, 12/14/23 3:17:00 PM EDT, Tablet, [facility]/pharmacy #[id number], Partial fill upon patient request if the prescription is for a schedule II opioid drug., 168, cm, 12/14/23 14:55:00 EDT, Height, 100.5, kg, 01/21/22 6:47:00 EDT, Dry Weight Start Date: 12/14/23 Status: Ordered Quantity: 30.0 Unit: tablet Repeat number: 1 Indication: Constipation, unspecified Trulicity Pen 0.75 mg/0.5 mL subcutaneous solution 0 Refills, Maintenance, 01/04/24 10:11:00 AM EDT, Partial fill upon patient request if the prescription is for a schedule II opioid drug. Start Date: 01/04/24 Status: Ordered Repeat number: 1 Problem List Condition Confirmation Course Effective Dates Status Health St atus Informant Obese class II Confirmed Active Vital Signs Most recent to oldest [Reference Range]: 1 Weight 99.4 kg (08/07/24 4:17 PM) Blood Pressure [90-138/55-84 mm Hg] 132/ 89mm Hg (08/07/24 4:17 PM) Blood pressure sites Arm, left (08/07/24 4:17 PM) Weight Obtained Via Standing scale (08/07/24 4:17 PM) Social History Social History Type Response Smoking Status Former smoker, quit more than 30 days ago entered on: 12/14/23 Sex Sex Representation Female (finding) Patient Care team information Care Team Personnel Name: Lejunior CADD INSTRUCTOR, Inga Position: Reference Physician Member Role: PCP Address: [address] [place] [address] Telecom: Care Team Related Persons Name: AROLDO RECINOS Insurance Providers Guarantor name: MOUNIKA Health Plan Information #: 1 Payer: [employer] Member Number: [id number] Policy Number: NA Group Number: [id number] Health Plan Information #: 2 Payer: [place] Member Number: [id number] Policy Number: MOUNIKA Group Number: [id number]
== END 2024-08-09 17:57 | disposition home or self-care (01) ==
LOC: HO.MRI 17:56
PROVIDERS: PCP Registered Nurse; Visit Provider Registered Nurse
DX: R51.9 Headache, unspecified (principal); G89.29 Other chronic pain
CPT/HCPCS: 70551

== ENCOUNTER 2024-08-15 11:18 | Outpatient (REF) | payer OTHER, MEDICAID, SELFPAY | END 2024-08-15 11:19 | disposition home or self-care (01) | LOC: HO.HHCX 11:18 | PROVIDERS: PCP Registered Nurse; Visit Provider Registered Nurse | DX: M79.642 Pain in left hand (principal) | CPT/HCPCS: 73130 ==

== ENCOUNTER 2024-08-15 11:28 | Outpatient (REF) | payer OTHER, MEDICAID, SELFPAY ==
[2024-08-15 13:32] LABS: Cholesterol 162 mg/dL (<200); HDL Cholesterol 30 mg/dL (>40); LDL Cholesterol Calculated 114 mg/dL (<100); Triglycerides 92 mg/dL (<150)
[2024-08-15 14:05] LABS: Creatinine Urine 155.11 mg/dL; Microalbum/Creatinine Ratio Ur 20.6 ug/mg cr (<30)
[2024-08-18 21:34] LABS: TS Negative Control Passed; TS Panel A 0; TS Panel B 0; TS Positive Control Passed; TSpotTB Negative (Negative)
== END 2024-08-15 11:29 | disposition home or self-care (01) ==
LOC: HO.HHCL 11:28
PROVIDERS: Visit Provider Registered Nurse
DX: Z00.00 Encounter for general adult medical examination without abnormal findings (principal); E11.9 Type 2 diabetes mellitus without complications
CPT/HCPCS: 36415; 80061; 82043; 82570; 86481

== ENCOUNTER → 2024-09-11 14:58 | Outpatient (REF) | payer OTHER, MEDICAID, SELFPAY ==
--- OUTSIDE RECORDS SUMMARY | 2024-09-11 17:00 | XMS_ITS | Continuity of Care Document ---
Author Organization [facility] Address [address], [address] [place] [address]- Care Team Providers Care Lap Maker Name Role Phone Conowingo GRINDER SET UP OPERATOR THREAD, Inga Primary Care Physician Encounter [facility] [id number] Date(s): 05/19/24 - 09/06/24 [facility] [address] [place] [address], [address] [place], [place] [address] Attending Physician: Arti Bauman MD Encounter Type: Pre Office Visit Allergies, Adverse Reactions, Alerts Substance Criticality Severity Reaction Reaction Severity Status bacitracin Hives Active Medications amitriptyline 10 mg oral tablet See Instructions, TAKE 1 TABLET BY MOUTH DAILY AT BEDTIME, MAY INCREASE TO 2 TABLETS AFTER 4 WEEKS., # 180 tablet, Refills 2, Maintenance, 08/23/24 9:21:00 AM EST, Instructions Replace Required Details, Route to Pharmacy Electronically, [id number], 167.6, cm, 05/19/24 15:36:00 EDT, Height, 98.9, kg, 01/04/24 10:03:00 EDT, Dry Weight Start Date: 08/23/24 Status: Ordered Quantity: 180.0 Unit: tablet Repeat number: 1 budesonide-formoterol 160 mcg-4.5 mcg/inh inhalation aerosol with adapter Refills 0, Maintenance, 01/04/24 10:11:00 AM EDT Start Date: 01/04/24 Status: Ordered Repeat number: 1 dicyclomine 10 mg oral capsule 1-2 capsule, By Mouth, 4 times a day, PRN abdominal pain, # 90 capsule, 1 Refills, Maintenance, 12/14/23 3:17:00 PM EDT, Capsule, [facility]/pharmacy #[id number], Partial fill upon patient request if [...] 3:58:00 PM EDT, Route to Pharmacy Electronically, [facility]/pharmacy #[id number], Partial fill upon patient request if [...] Refills, Maintenance, 05/16/24 11:14:00 AM EDT, Suspension, [facility], Partial fill upon patient [...] Refills, Maintenance, 12/14/23 3:17:00 PM EDT, Tablet, [facility]/pharmacy #[id number], Partial fill upon patient request if [...] atus Informant Obese class II Confirmed Active Social History Social History Type Response Smoking Status Former smoker, quit more than 30 days ago entered on: 12/14/23 Sex Sex Representation Female (finding) Patient Care team information Care Team Personnel Name: Conowingo Inga SCHULTZ Position: Reference Physician Member Role: PCP Address: [address] [place] [address] Telecom: Care Team Related Persons Name: AROLDO RECINOS Insurance Providers Guarantor name: MOUNIKA Health Plan Information #: 2 [facility] Member Number: [id number] Policy Number: MOUNIKA Group Number: [id number] [employer] Plan Information #: 1 Payer: [employer] Member Number: [id number] Policy Number: MOUNIKA Group Number: [id number]
== END ==
LOC: HO.SL 14:58
PROVIDERS: PCP Registered Nurse; Visit Provider Registered Nurse
DX: R51.9 Headache, unspecified (principal); G89.29 Other chronic pain; R06.83 Snoring; R40.0 Somnolence
CPT/HCPCS: 95806

== ENCOUNTER → 2024-09-11 19:00 | Outpatient (BNV) | payer OTHER, MEDICAID, SELFPAY | PROVIDERS: PCP Registered Nurse; Visit Provider Internal Medicine | DX: R06.83 Snoring (principal); G47.10 Hypersomnia, unspecified | CPT/HCPCS: 95806 ==

== ENCOUNTER 2025-08-21 13:44 | Outpatient (REF) | payer OTHER, SELFPAY ==
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
--- OUTSIDE RECORDS SUMMARY | 2025-08-21 17:54 | XMS_ITS | Encounter Summary ---
Author Organization [employer] Address [address] [place] [address] 7 [place] [address] Care Team Providers Care Homoeopath Name Role Phone [place] [facility] Primary Care Provider [phone] Reason for Visit * Reason Comments Med Change Request Encounter Details Date Type Department Care Team ([facility] Contact Info) Description 05/03/2023 Refill [facility] MEDICINE [address] [place] [phone] [phone] Type 2 diabetes mellitus without complication, without long-term current use of insulin ([facility]) Social History Tobacco Use Types Packs/Day Years Used Date Smoking Tobacco: Never Smokeless Tobacco: Never Alcohol Use Standard Drinks/Week Comments Not Currently 0 (1 standard drink = 0.6 oz pur e alcohol) Depression Answer Date Recorded Patient Health Questionnaire-9 Score 0 03/01/2023 Depression Answer Date Recorded Patient Health Questionnaire-2 Score 0 03/01/2023 Comments Unknown Sex and Gender Information Value Date Recorded Sex Assigned at Female 07/06/2022 10:30 AM EDT Legal Sex Female 10:30 AM EDT Gender Identity Female 07/06/2022 10:30 AM EDT Sexual Orientation Straight 07/06/2022 10 :30 AM EDT documented as of this encounter Plan of Treatment Upcoming Encounters Date Type Department Care Team ([facility] Contact Info) Description 09/21/2025 9:30 AM EST Office Visit [facility] MED[facility]INE [address] [place] [phone] [address] documented as of this encounter Visit Diagnoses Diagnosis Type 2 diabetes mellitus without complication, without long-term current use of insulin (HCC) documented in this encounter Additional Health Concerns Assessment Noted Time PHQ-9 Depression Total Score: 0 03/01/20 3:11 PM EDT documented as of this encounter Care Teams Homoeopath Relationship Specialty Start Date End Date Inga Ramirez FNP [address] [place] [address] PCP - General Family Medicine 12/04/22 documented as of this encounter
--- OUTSIDE RECORDS SUMMARY | 2025-08-21 17:55 | XMS_ITS | Data Portability ---
Author Organization [place] - [facility], All[facility] Address [address] [place] [id number] Care Team Providers Care Supervisor Fusing Room Name Role Phone TEJ ATWOOD Primary Care Provider [phone] Assessment Encounter Date Assessment Date Assessment LastModified by Organization Details LastModified Time 12/25/2024 12/25/2024 Patient with pulsatile tinnitus in the left ear. Physical exam unrevealing. Audiometric testing demonstrates mixed hearing loss on that side and normal hearing on the right with abnormal reflexes bilaterally. Recommend MRI of the IACs and MRV of the brain; rationale reviewed. Patient to follow up here with surgeon to discuss results. [email or web address] Not available 12/25/2024 16:51:30 02/06/2025 02/06/2025 The left mixed hearing loss may explain some of the pulsatile tinnitus she appreciates. Recommend consultation with Dr. Matias to discuss treatment. Review of MRI, MRA brain was benign [email or web address] Not available 02/01/2025 09:53:41 06/13/2025 06/13/2025 Patient with pulsatile tinnitus on the left. Initially, I felt that this might represent otosclerosis, but tuning fork testing was inconsistent with her audiometric testing. Therefore repeat testing was carried out in the left ear. Unfortunately, she was unable to provide consistent responses to pure-tone audiometric testing. Jesus testing implied functional hearing loss in the left ear. Otoacoustic emissions in the left ear implies absolutely normal hearing on the left side. Today we discussed the inconsistencies with regards to the subjective and objective testing today. Patient became very upset, and then reported that she can hear fine out of the left ear, but she has trouble hearing in general because of the volume of the pulsating sound in the left ear. This is inconsistent with her initial reports as to the volume of the pulsatile tinnitus at the beginning of the visit. She has already had a full MRI and MRA workup of the brain and cerebral circulation, so there does not appear to be any gross vascular anomaly. We discussed that 1 additional test that could shed light on this symptom would be a CAT scan of the temporal bones which could detect a dehiscence of the sigmoid sinus or carotid artery within the temporal bone that could explain the pulsatile tinnitus. I offered this but she declined. She left the office today stating that she would simply buy a hearing aid and put it in her left ear to drown out the pulsatile tinnitus. She is welcome to come back for further workup if she desires. [email or web address] Not available 06/13/2025 17:01:50 Plan of Treatment Reminders Order Date Submit Date Provider Last Modified By Organization Details Last Modified Time Details Appointments None recorded. Lab None recorded. Referral None recorded. Procedures None recorded. Surgeries None recorded. Imaging MR, angiogram, head, w/o contrast - Please use Dr. East' pulsatile tinnitus protocol 2024 025 [email or web address] [facility] ([facility]), [address] [place], [address], 5 15:31:26 MRI, brain + internal auditory canal, w/wo contrast - MRI, BRAIN + INTERNAL AUDITORY CANAL, W/WO CONTRAST 2024 025 [email or web address] [facility] ([facility]), [address] [facility], [place], [address], 5 15:31:42 Medication Orders None recorded. Patient TargetsNo targets recorded. Patient InstructionsNo instructions recorded. Reason for Referral None Reported. Results Created Date Observation Date Name Description Value Unit Range Abnormal Flag Note LastModifiedBy Organization Detail LastModifiedTime 12/26/1908/09/2024 MRI, brain + brain stem, w/o contr ast No observ ation record ed. [facility] ([facility]) [address] [facility] [address], [place], [address], 02/01/2025 09:52:11 12/26/19 25 audio gram No observ ation record ed. BARCODE Not Available 2024 14:48:18 01/17/20 25 01/13/2025 MRI, brain + inter nal audit ory canal , w/wo contr ast No observ ation record ed. [email or web address] [facility] ([facility]) [address] [facility] [place], [address], 01/25/2025 11:35:15 01/17/20 25 01/13/2025 MRI, brain + inter nal audit ory canal , w/wo contr ast No observ ation record ed. [facility] [address] [facility] [place], [address], 01/25/2025 11:35:15 01/20/20 25 01/13/2025 MRI, brain + inter nal audit ory canal , w/wo contr ast No observ ation record ed. [email or web address] [facility] ([facility]) [address] [facility] [place], [address], 01/19/2025 14:11:32 06/14/20 25 audio gram No observ ation record ed. BARCODE Not Available 2024 10:20:58 Result Notes None recorded. Problems Name Problem SNOMED Code Status Onset Date Resolution Date Notes Provider Name and Address Organization Details Recorded Time Localized enlarged lymph nodes 424895552 Active 2021 Localized enlarged lymph nodes; Note: Date Diagnosed : 08/13/2022 1:51 PM (R59.0) Not Available [facility] 4 03:06:24 Respirato ry finding 914507509 Active 2021 Feeling of foreign body in throat; Note: Date Diagnosed : 08/13/2022 1:51 PM (R09.89) Not Available [facility] 4 03:06:24 Cardiovas cular finding 555855765 Active 2021 Feeling of foreign body in throat; Note: Date Diagnosed : 08/13/2022 1:51 PM (R09.89) Not Available [facility] 4 03:06:24 Gastroeso phageal reflux disease without esophagit is 642454331 Active 2021 Gastro-es ophageal reflux disease without esophagit is; Note: Date Diagnosed : 08/13/2022 1:51 PM (K21.9) Not Available [facility] 4 03:06:23 Bleeding from nose 152838416 Active 2022 Epistaxis ; Note: Date Diagnosed : 01/24/2023 4:29 PM (R04.0) Not Available [facility] 4 03:06:25 Mixed conductiv e and sensorine ural hearing loss of left ear 81857479582 107 Active 2024 Stacey jackson [place] - [facility] 13:28:48 Abnormal auditory perceptio n 49131534 Active 2024 Figueroa PIERRE [address] [place] [address],[place] [address], [place], [address] , [facility] - [facility] 16:41:32 Tinnitus of vascular origin 963304074 Active 2024 SHANELLE MATIAS MD [address] [place] [address],[place] [address], [place], [address] , [facility] 16:56:53 Psychogen ic deafness 46443264 Active 2024 SHANELLE MATIAS MD [address] [place] [address],[place] [address], [place], [address] , [facility] 17:02:25 Problem Notes None recorded. Procedures Surgical History Date Name Laterality Status Provider Name and Address Organization Details Recorded Time 06/13/20 25 Pure Tone Jesus Test - 52899 completed Figueroa PIERRE [address] [facility],[place] [address], [place], [address], [facility] 06/13/2025 16:41:16 06/13/20 OAE distortion product, comprehensive - 34380 completed Figueroa PIERRE [address] [place] [address],[place] [address], [place], [address], [place] - [facility] 06/13/2025 16:42:13 06/13/20 25 Tymps & Reflexes - 06934 completed HOMER SPRINGER, [facility] [address] [facility],[place] [address], [place], [address], [place] - [facility] 06/13/2025 16:41:12 12/26/19 25 Comp Audio with Tymps & Reflexes - 10206 & 68799 completed Stacey Vaca [place] - [facility] 12/25/2024 13:28:01 Imaging Results None recorded. Procedure Notes None recorded. Medical Equipment None Reported. Allergies Allergen ID Allergen Name Allergen Category Reaction Reaction Severity Criticality Documentation Date Start Date Code Code System Note Provider Name and Address Organization Details Recorded Time 996983 bacitraci n medicatio n other Not available Not available 01/18/2024 1291 RxNorm React ion: Unkno wn; Not Available [facility] 01:25:31 Medications Name Sig Start Date Stop Date Status Note LastModified by Organization Details LastModified Time metformin 500 mg tablet 06/13 completed Medicati on ID: [id number] B rand Name: metformi n Send Method: E-Prescr ibed Sub s Allowed: subs OK Medic ationGen ericName : metformi n Not Available Not Available Not Available loperamid e 2 mg capsule TAKE 1 CAPSULE BY MOUTH EVERY 4 HOURS NEEDED FOR LOOSE STOOL 06/13 completed Not Available Not Available Not Available sumatript an 50 mg tablet PLEASE SEE ATTACHED FOR DETAILED DIRECTIO NS active Not Available Not Available No t Available omeprazol e 40 mg capsule,d elayed release 06/13 completed Medicati on ID: [id number] D uration Value: 30 Brand Name: omeprazo le Send Method: E-Prescr ibed Sub s Allowed: subs OK Speci al Instruct ion: Take 1 tab PO 1/2 hour before breakfas t Medica tionGene ricName: omeprazo le Not Available Not Available Not Available spironola ctone 25 mg tablet TAKE 1 TABLET BY MOUTH EVERY DAY IN THE MORNING active Not Available Not Available No t Available amitripty line 10 mg tablet TAKE 1 TABLET BY MOUTH DAILY AT BEDTIME, MAY INCREASE TO 2 TABLETS AFTER 4 WEEKS. 06/13 completed Not Available Not Available Not Available esomepraz ole magnesium 40 mg capsule,d elayed release TAKE 1 CAPSULE BY MOUTH EVERY DAY active Not Available Not Available No t Available ibuprofen 600 mg tablet TAKE 1 TABLET (600 MG) BY MOUTH EVERY 8 (EIGHT) HOURS IF NEEDED FOR MILD PAIN OR MODERATE PAIN. 06/13 completed Not Available Not Available Not Available fluticaso ne propionat e 50 mcg/actua tion nasal spray,david pension SPRAY 1 SPRAY INTO EACH NOSTRIL EVERY DAY active Not Available Not Available No t Available medroxypr ogesteron e 150 mg/mL intramusc ular suspensio n INJECT 1 ML INTRAMUS CULARLY EVERY 3 MONTHS FOR AT LEAST 6 MONTHS active Not Available Not Available No t Available olmesarta n 5 mg tablet TAKE 1 TABLET BY MOUTH EVERY DAY IN THE MORNING 06/13 completed Not Available Not Available Not Available Trulicity 0.75 mg/0.5 mL subcutane ous pen injector INJECT 0.75 MG UNDER THE SKIN 1 (ONE) TIME PER WEEK. active Not Available Not Available No t Available Accu-Chek Guide test strips USE DIRECTED TO TEST BLOOD SUGAR EVERY DAY active Not Available Not Available No t Available Accu-Chek Guide Me Glucose Meter USE DIRECTED TO TEST BLOOD SUGAR EVERY DAY active Not Available Not Available No t Available Flowflex COVID-19 Antigen Home Test kit FOLLOW INSTRUCT IONS INCLUDED WITH THE PACKAGE. 12/25 completed Not Available Not Available Not Available Vitals Date Recorded Body height Body mass index (BMI) Body weight Provider Name and Address Organization Details Last Updated DateTime 12/25/2024 162.56 cm 39.5 kg/m2 288806.25 g Mariela Morillo [place] - [facility] 12/25/2024 14:04:19 Date Recorded Body height Provider Name an d Address Organization Details Last Updated DateTime 02/06/2025 162.56 cm YU SHER [place] - [facility] 02/06/2025 14:05:15 Social History None recorded. Functional Status None recorded. Mental Status None recorded. Family History Nothing Reported. Medical History No medical history recorded. Gynecological HistoryNo gynecological history recorded. Obstetrics History GPAL:G 0 P 0 0 0 0 Past Encounters Encounter ID Performer Location Encounter Start Date Encounter Closed Date Diagnosis/Indication Diagnosis SNOMED-CT Code Diagnosis ICD10 Code Diagnosis IMO Codes Diagnosis Note [id number] ANALI BOND PA-C [facility] [address] [address] 12/25/2024 12:52:56 12/25/2024 15:57:24 Mixed conductive and sensorineural hearing loss of left ear 9775154665 9107 H90.72 Audiologic al evaluation results:Ri ght ear:Normal hearing with excellent word recognitio n.Left ear:Mild sloping to a moderate mixed hearing loss with excellent word recognitio n. Tympanomet ry:Right Ear:Type ALeft Ear:Type A Acoustic Reflex Testing: Signal to theRight Ear(crosse d):Absent Signal to theRight Ear(uncros sed): Absent Signal to theLeft Ear(crosse d):Absent Signal to theLeft Ear(uncros sed):Abnor mal Subjective pulsatile tinnitus 3711666548 95743 H93.A3 H93.A2 H93.A1 LEFT ear [id number] MICA DOWELL MD [facility] [address] [address] 02/06/2025 13:57:53 02/06/2025 14:29:04 Mixed conductive and sensorineural hearing loss of left ear 5360811087 9107 H90.72 [id number] SHANELLE MATIAS MD [facility] [address] [address] 06/13/2025 15:43:43 06/13/2025 16:55:46 Abnormal auditory perception 98916398 H93.292 [id number] Tympanomet ry was a type A with abnormal reflexes in the left ear. OAEs were normal from 1.5 - 12 kHz in the left ear. A pure tone jesus test was positive at 1 & 2 kHz. Tinnitus o f vascular origin 496499598 H93.A2 92987906 Psychogenic deafness 301 19784 F44.6 [id number] Health Concerns Section Related Observation LastModified by Organization Detai ls LastModified Time None Recorded Concern Status LastModified by Organization Details LastModified Time None Recorded Advance Directives Directive None Recorded Payers Insurance Date Sequence Insurance Name Policy Number Policy Blandon Covered Member ID Blandon Member ID Guarantor Name 06/13/2025 2 [place] [facility] Latoya Barreto [id number] Latoya Barreto 06/13/2025 1 [employer] (POS) [id number] Gee Barreto [id number] Latoya Barreto 02/06/2025 2 [place] [facility] Latoya Barreto [id number] Latoya Barreto Notes Date Note Type Note Provider Name and Address Organization Details Recorded Time 12/25/2024 text/html ROS as noted in the HPI 34 year old female presents for evaluation of ears and hearing. Hearing her heartbeat in her left ear. Definitely in time with her pulse. Started in July, occurred for about 3 weeks and then went away, recurred about 2 months ago and has been present ever since. There were no new medications and no new health concerns at the time. She had a history of hypertension but has been taken off her anti-hypertensive because BP is well controlled with diet and exercise. The medication was discontinued in August. Her blood pressure has been normal since the pulsatile tinnitus recurred 2 months ago. She feels her hearing on the left is not as good as on the right. There is no otalgia, otorrhea, and no vertigo. She does not smoke. No known family history of aneurysm. PCP sent her for some imaging of the head at [facility] 08/09 that was reportedly normal. PATRICK SALINAS MD [address], [address], [facility] - [facility] 12/26/2024 08:05:03 02/06/2025 text/html left pulsatile tinnitusonset 07/2024in time with her pulse 01/13/2025 [facility] brain angioThere is no discrete mass or abnormal enhancement within either CP angle, IAC or temporal bone. Normal MRA of the head PV 12/25/24 Anali - left pulsatile tinnitus. audio left mixed HL with type A tymps. imaging requested work - cook for [employer] MICA DOWELL MD [address] [place], [place] [address], [address], [facility] 02/06/2025 14:29:02 06/13/2025 text/html Patient with history of left pulsatile tinnitus in the context of left-sided mixed hearing loss. She had MRI of the brain and internal auditory canals as well as MRA of the head and neck which were both negative. Audiogram 6 months ago showed normal hearing in the right ear, and a mixed hearing loss in the left ear. Patient did have partial loss, but not complete loss of tympanic reflexes on the left.Patient began noticing the pulsatile sensation in the hearing loss back in July 2024. The pulsing sensation has waxed and waned a little bit over the last year. It is very faint but still present on the left. She continues to notice the hearing loss in the left ear.No family history of hearing loss. No history of ear trauma or surgery in the left ear. SHANELLE MATIAS MD [address] [place] [address], [phone], [facility] 06/13/2025 17:02:33 OBGyn Episode No OBEpisode recorded.
--- OUTSIDE RECORDS SUMMARY | 2025-08-21 17:55 | XMS_ITS | Encounter Summary ---
Author Organization [employer] Address [address] [place] [address] 7 [place] [address] Care Team Providers Care Safety And Occupational Health Manager Name Role Phone [facility] Primary Care Provider [phone] Reason for Visit * Reason Comments Med Refill Encounter Details Date Type Department Care Team ([facility] Contact Info) Description 02/19/2023 Refill [facility] [address] [place] [address] [phone] [facility] [address] [place], [place] [phone] Primary hypertension Social History Tobacco Use Types Packs/Day Years [...] suspected to have Coronavirus/COVID-19? No / Unsure 02/11/2023 12:54 PM EDT documented as of this encounter Plan of Treatment Upcoming Encounters Date Type Department Care Team ([facility] Contact Info) Description 09/21/2025 9:30 AM EST Office Visit [facility] [address] [place] [address] [phone] [facility] [address] [place] [address] documented as of this encounter Visit Diagnoses Diagnosis Primary hypertension Unspecified essential hypertension documented in this encounter Additional Health Concerns Assessment Noted Time PHQ-9 Depression Total Score: 0 01/29/20 1:07 PM EDT documented as of this encounter Care Teams Safety And Occupational Health Manager Relationship Specialty Start Date End Date Inga Ramirez FNP [address] [place] [address] PCP - General Family Medicine 12/04/22 documented as of this encounter
--- OUTSIDE RECORDS SUMMARY | 2025-08-21 17:55 | XMS_ITS | Encounter Summary ---
Author Organization [employer] Address [address] [place] [address] 7t [place] [address] Care Team Providers Care Local Company Intermodal Truck Driver Name Role Phone [facility] Primary Care Provider [phone] Encounter Details Date Type Department Care Team (Late Contact Info) Description 03/11/2023 Orders Only [facility] [address] [place] [address] [address] Elevated liver enzymes (Primary Dx) Social History Tobacco Use Types Packs/Day Years [...] suspected to have Coronavirus/COVID-19? No / Unsure 03/01/2023 2:57 PM EDT documented as of this encounter Plan of Treatment Upcoming Encounters Date Type Department Care Team (Late Contact Info) Description 09/21/2025 9:30 AM EST Office Visit [facility] [address] [place] [address] Inga Ramirez FNP [address] [place] [address] Scheduled Orders Name Type Priority Associated Diagnoses Orde r Schedule Hepatitis A,B,C Profile Lab Routine Elevated liver enzymes Expected: 03/11/2023 (Approximate), Expires: 03/11/2024 Iron, TIBC And Ferritin Panel Lab Routine Elevated liver enzymes Expected: 03/11/2023 (Approximate), Expires: 03/11/2024 Lipid Panel, Standard Lab Routine Elevated liver enzymes Expected: 03/11/2023 (Approximate), Expires: 03/11/2024 Comprehensive Metabolic Panel Lab Routine Elevated liver enzymes Expected: 03/11/2023 (Approximate), Expires: 03/11/2024 CBC auto differential Lab Routine Elevated liver enzymes Expected: 03/11/2023 (Approximate), Expires: 03/11/2024 documented as of this encounter Visit Diagnoses Diagnosis Elevated liver enzymes- Primary Other nonspecific abnormal serum enzyme levels documented in this encounter Additional Health Concerns Assessment Noted Time PHQ-9 Depression Total Score: 0 03/01/20 23 3:11 PM EDT documented as of this encounter Care Teams Local Company [employer] Truck Driver Relationship Specialty Start Date End Date Inga Ramirez FNP [address] [place] [address] PCP - General Family Medicine 12/04/22 documented as of this encounter
--- OUTSIDE RECORDS SUMMARY | 2025-08-21 17:55 | XMS_ITS | Encounter Summary ---
Author Organization [employer] Address [address] [facility] 7t [place] [address] Care Team Providers Care Parent Partner Name Role Phone [facility] Primary Care Provider [phone] Reason for Visit * Reason Comments Med Refill Encounter Details Date Type Department Care Team ([facility] st Contact Info) Description 12/06/2023 Refill [facility] [address] [place], [place] [phone] [facility] [address] [place] [address] PCOS (polycystic ovarian syndrome) Social History Tobacco Use Types Packs/Day Years Used Date Smoking Tobacco: Never Passive Smoke Exposure: Never Smokeless Tobacco: Never Alcohol Use Standard Drinks/Week Comments Not Currently 0 (1 standard drink = 0.6 oz pur e alcohol) Depression Answer Date Recorded Patient Health Questionnaire-9 Score 0 03/01/2023 Housing Stability Answer Date Recorded What is your housing situation today? I have vita cunha 06/22/[address] you li ve. Do you have problems with any of the following? None of the above 06/22/2023 Food Insecurity Answer Date Recorded Within the past 12 months, y ou worried that your food would run out before you got money to buy more: Never True 06/22/2023 Within the past 12 months,th e food you bought just didn't last and you didn't have enough money to get more: Never True Transportation Answer Date Recorded In the past 12 months, has l ack of transportation kept you from medical appts, meetings, work or from getting things needed for daily living? No 06/22/2023 Utilities Answer Date Recorded In the past 12 months, has t he electric, gas, oil or water company threatened to shut off services in your home? No 06/22/2023 Depression Answer Date Recorded Patient Health Questionnaire-2 [...] Description 09/21/2025 9:30 AM EST Office Visit [facility] [address] [place] [address] Inga Ramirze FNP [address] [place] [address] documented as of this encounter Visit Diagnoses Diagnosis PCOS (polycystic ovarian syndrome) Polycystic ovaries documented in this encounter Additional Health Concerns Assessment Noted Time PHQ-9 Depression Total Score: 0 03/01/20 3:11 PM EDT documented as of this encounter Care Teams Parent Partner Relationship Specialty Start Date End Date Inga Ramirez FNP [address] [place] [address] PCP - General Family Medicine 12/04/22 documented as of this encounter
--- OUTSIDE RECORDS SUMMARY | 2025-08-21 17:55 | XMS_ITS | Encounter Summary ---
Author Organization [employer] Address [address] [facility] 7t [place] [address] Care Team Providers Care White Shoe Examiner Name Role Phone [facility] Primary Care Provider [phone] Reason for Visit * Reason Comments Med Refill Encounter Details Date Type Department Care Team ([facility] Contact Info) Description 11/12/2023 Refill [facility] [address] [place], [place] [phone] [facility] [address] [place] [address] Primary hypertension Social History Tobacco Use Types [...] Description 09/21/2025 9:30 AM EST Office Visit [facility] [address] [place] [address] Inga Ramirez FNP [address] [place] [address] documented as of this encounter Visit Diagnoses Diagnosis Primary hypertension Unspecified essential hypertension documented in this encounter Additional Health Concerns Assessment Noted Time PHQ-9 Depression Total Score: 0 03/01/20 3:11 PM EDT documented as of this encounter Care Teams White Shoe Examiner Relationship Specialty Start Date End Date Inga Ramirez FNP [address] [place] [address] PCP - General Family Medicine 12/04/22 documented as of this encounter
--- OUTSIDE RECORDS SUMMARY | 2025-08-21 17:55 | XMS_ITS | Encounter Summary ---
Author Organization [employer] Address [address] [facility] 7 [place] [address] Care Team Providers Care Fundraising Specialist Name Role Phone [facility] Primary Care Provider [phone] Reason for Visit * Reason Onset Date Comments Med Refill 04/10/2025 Encounter Details Date Type Department Care Team ([facility] st Contact Info) Description 04/10/2025 Refill [facility] [address] [place] [address] [facility] [address] [place] [address] Social History Tobacco Use Types Packs/Day Years Used Date Smoking Tobacco: Never Passive Smoke Exposure: Never Smokeless Tobacco: Never Alcohol Use Standard Drinks/Week Comments Not Currently 0 (1 standard drink = 0.6 oz pur e alcohol) Depression Answer Date Recorded Patient Health Questionnaire-9 Score 1 02/12/2025 Patient Health Questionnaire-9 Score 1 02/12/2025 Last PHQ-9: Questionnaire Data Not on file 0 02/12/2025 Housing Stability Answer Date Recorded What is your housing situation today? I have vita cunha 02/12/[address] you li ve. Do you have problems with any of the following? None of the above 02/12/2025 Food Insecurity Answer Date Recorded Within the past 12 months, y ou worried that your food would run out before you got money to buy more: Never True 08/21/2024 Within the past 12 months,th e food you bought just didn't last and you didn't have enough money to get more: Never True Transportation Answer Date Recorded In the past 12 months, has l ack of transportation kept you from medical appts, meetings, work or from getting things needed for daily living? No 08/21/2024 Utilities Answer Date Recorded In the past 12 months, has t he electric, gas, oil or water company threatened to shut off services in your home? No 08/21/2024 Depression Answer Date Recorded Patient Health Questionnaire-2 Score 0 02/12/2025 Internet Access Answer Date Recorded Internet Access Q1 Yes 02/12/2025 Internet Access Q2 Not on file 02/12/2025 Comments No Sex and Gender Information Value Date Recorded Sex Assigned at Female 07/06/2022 10:30 AM EDT Legal Sex Female 10:30 AM EDT Gender Identity Female 07/06/2022 10:30 AM EDT Sexual Orientation Straight 07/06/2022 10 :30 AM EDT documented as of this encounter Plan of Treatment Upcoming Encounters Date Type Department Care Team (Late st Contact Info) Description 09/21/2025 9:30 AM EST Office Visit [facility] [address] [place] [address] Inga Ramirez FNP [address] [place] [address] documented as of this encounter Visit Diagnoses Not on filedocumented in this encounter Additional Health Concerns Assessment Noted Time PHQ-9 Depression Total Score: 1 02/13/20 25 3:37 PM EDT documented as of this encounter Care Teams Fundraising Specialist Relationship Specialty Start Date End Date Inga Ramirez FNP [address] [place] [address] PCP - General Family Medicine 12/04/22 documented as of this encounter
--- OUTSIDE RECORDS SUMMARY | 2025-08-21 17:55 | XMS_ITS | Encounter Summary ---
Author Organization [employer] Address [address] [facility] 7t [place] [address] Care Team Providers Care Manager Health Name Role Phone Inga Ramirez [facility] Primary Care Provider [phone] Reason for Visit * Reason Comments Med Change Request Encounter Details Date Type Department Care Team ([facility] st Contact Info) Description 12/18/2022 Refill [facility] [address] [place] [address] Nori Lloyd FNP Type 2 diabetes mellitus with hyperglycemia, without long-term current use of insulin ([facility]) Social History Tobacco Use Types Packs/Day Years [...] suspected to have Coronavirus/COVID-19? No / Unsure 11/24/2022 3:10 PM EDT documented as of this encounter Miscellaneous Notes * Telephone Encounter - STELLA Mendoza - 12/22/2022 5:29 PM EDT Sent kit separately to [facility] pharmacy to see if supplies would be supplied that way Strips Lancets Machine documented in this encounter Plan of Treatment Upcoming Encounters Date Type Department Care Team (Late st Contact Info) Description 09/21/2025 9:30 AM EST Office Visit [facility] [address] [place] [address] Inga Ramirez FNP [address] [place] [address] documented as of this encounter Visit Diagnoses Diagnosis Type 2 diabetes mellitus with hyperglycemia, without long-term current use of insulin (HCC) documented in this encounter Additional Health Concerns Assessment Noted Time PHQ-9 Depression Total Score: 0 10/05/19 1:21 PM EST documented as of this encounter Care Teams Manager Health Relationship Specialty Start Date End Date Inga Ramirez FNP [address] [place] [address] PCP - General Family Medicine 12/04/22 documented as of this encounter
--- OUTSIDE RECORDS SUMMARY | 2025-08-21 17:55 | XMS_ITS | Continuity of Care Document ---
Author Organization [place] [facility], [facility] Address [address] [place] [address] Care Team Providers Care Aircraft Manager Name Role Phone ANGELIC TEJ Primary Care Provider Assessment Encounter Date Assessment Date Assessment LastModified by Organization Details LastModified Time 06/13/2025 06/13/2025 Patient with pulsatile tinnitus on the left. Initially, I felt that this might represent otosclerosis, but tuning fork testing was inconsistent with her audiometric testing. Therefore repeat testing was carried out in the left ear. Unfortunately, she was unable to provide consistent responses to pure-tone audiometric testing. Enrico testing implied functional hearing loss in the [...] back for further workup if she desires. Not available 06/13/2025 17:01:50 Plan of Treatment Reminders Order Date Submit Date Provider Last Modified By Organization Details Last Modified Time Details Appointments None record ed. Lab None record ed. Referral None record ed. Procedures None record ed. Surgeries None record ed. Imaging None record ed. Medication Orders None record ed. Patient TargetsNo targets recorded. Patient InstructionsNo instructions recorded. Reason for Referral None Reported. Results Created Date Observation Date Name Description Value Unit Range Abnormal Flag Note LastModifiedBy Organization Detail LastModifiedTime 06/14/20 audio gram No observ ation record ed. BARCODE Not Available 2024 10:20:58 Result Notes None recorded. Problems Name Problem SNOMED Code Status Onset Date Resolution Date Notes Provider Name and Address Organization Details Recorded Time Localized enlarged lymph nodes 761110737 Active 2021 Localized enlarged lymph nodes; Note: Date Diagnosed : 08/13/2022 1:51 PM (R59.0) Not Available [facility] 4 03:06:24 Respirato ry finding 943463131 Active 2021 Feeling of foreign body in throat; Note: Date Diagnosed : 08/13/2022 1:51 PM (R09.89) Not Available [facility] 4 03:06:24 Cardiovas cular finding 546316004 Active 2021 Feeling of foreign body in throat; Note: Date Diagnosed : 08/13/2022 1:51 PM (R09.89) Not Available [facility] 4 03:06:24 Gastroeso phageal reflux disease without esophagit is 328820918 Active 2021 Gastro-es ophageal reflux disease without esophagit is; Note: Date Diagnosed : 08/13/2022 1:51 PM (K21.9) Not Available [facility] 4 03:06:23 Bleeding from nose 608979134 Active 2022 Epistaxis ; Note: Date Diagnosed : 01/24/2023 4:29 PM (R04.0) Not Available [facility] 4 03:06:25 Mixed conductiv e and sensorine ural hearing loss of left ear 96375773295 107 Active 2024 Stacey jackson [place] [facility] [place] 13:28:48 Abnormal auditory perceptio n 49399503 Active 2024 HOMER SPRINGER AuD [address] [facility],MARIA ELENA [facility], [place], [address] , [place] [facility] 16:41:32 Tinnitus of vascular origin 188803225 Active 2024 SHANELLE MATIAS MD [address] [facility],[place] [address], [place], [address] , [facility] - [facility] [place] 16:56:53 Psychogen ic deafness 33118077 Active 2024 SHANELLE MATIAS MD [address] [facility],[place] [address], [place], [address] , [facility] - [facility] [place] 17:02:25 Problem Notes None recorded. Procedures Surgical History Date Name Laterality Status Provider Name and Address Organization Details Recorded Time 06/13/20 25 Pure Tone Enrico Test - 54750 completed HOMER SPRINGER AuD [address] [facility],[place] [address], [place], [address], [facility] - [facility] 06/13/2025 16:41:16 06/13/20 25 OAE distortion product, comprehensive - 16908 completed HOMER SPRINGER AuD [address] [facility],[place] [address], [place], [address], [facility] - [facility] 06/13/2025 16:42:13 06/13/20 25 Tymps & Reflexes - 52938 completed Figueroa PIERRE [address] [facility],[place] [address], [place], [address], [facility] - [facility] [place] 06/13/2025 16:41:12 12/26/19 25 Comp Audio with Tymps & Reflexes - 17621 & 40247 completed Stacey Vaca [place] - [facility] [place] 12/25/2024 13:28:01 Imaging Results None recorded. Procedure Notes None recorded. Medical Equipment None Reported. Allergies Allergen ID Allergen Name Allergen Category Reaction Reaction Severity Criticality Documentation Date Start Date Code Code System Note Provider Name and Address Organization Details Recorded Time 162643 bacitraci n medicatio n other Not available Not available 01/18/2024 1291 RxNorm React ion: Unkno wn; Not Available [facility] 01:25:31 Medications Name Sig Start Date Stop Date Status Note LastModified by Organization Details LastModified Time metformin 500 mg tablet 06/13 completed Medicati on ID: [id number] B rand Name: metformi n Send Method: [...] elayed release 06/13 completed Medicati on ID: [id number] D uration Value: 30 Brand Name: omeprazo [...] Not Available Not Available Not Available Vitals None Recorded Social History None recorded. Functional Status None recorded. Mental Status None recorded. Family History Nothing Reported. Medical History No medical history recorded. Gynecological HistoryNo gynecological history recorded. Obstetrics History GPAL:G 0 P 0 0 0 0 Past Encounters Encounter ID Performer Location Encounter Start Date Encounter Closed Date Diagnosis/Indication Diagnosis SNOMED-CT Code Diagnosis ICD10 Code Diagnosis IMO Codes Diagnosis Note [id number] SHANELLE MATIAS MD [facility] [address] [address] 06/13/2025 15:43:43 06/13/2025 16:55:46 Abnormal auditory perception 18725656 H93.292 [id number] Tympanomet ry was a type A with abnormal reflexes in the left ear. OAEs were normal from 1.5 - 12 kHz in the left ear. A pure tone enrico test was positive at 1 & 2 kHz. Tinnitus o f vascular origin 428436466 H93.A2 48337482 Psychogenic deafness 301 13417 F44.6 175851 Health Concerns Section Related Observation LastModified by Organization Detai ls LastModified Time None Recorded Concern Status LastModified by Organization Details LastModified Time None Recorded Payers Encounter Date Sequence Insurance Name Policy Number Policy Blandon Covered Member ID Blandon Member ID Guarantor Name 06/13/2025 2 [place] [facility] Latoya Barreto [id number] Latoya Barreto 06/13/2025 1 [employer] (POS) [id number] Gee Barreto [id number] Latoya Barreto Notes Date Note Type Note Provider Name and Address Organization Details Recorded Time 06/13/2025 text/html Patient with history of left [...] in the left ear. SHANELLE MATIAS MD [address] [place] [address], [phone], [place] [facility] 06/13/2025 17:02:33 OBGyn Episode No OBEpisode recorded.
--- OUTSIDE RECORDS SUMMARY | 2025-08-21 17:55 | XMS_ITS | Encounter Summary ---
Author Organization [employer] Address [address] [facility] 7t [place] [address] Care Team Providers Care Data Processing Systems Project Planner Name Role Phone [facility] Primary Care Provider [phone] Reason for Visit * Reason Onset Date Comments Lab Orders 07/25/2025 Encounter Details Date Type Department Care Team ([facility] Contact Info) Description 07/25/2025 Telephone [facility] [address] [place] [address] [facility] [address] [place] [address] Lab Orders Social History Tobacco Use Types Packs/Day Years [...] AM EDT documented as of this encounter Miscellaneous Notes * Addendum Note - Walker Flores RN - 08/21/2025 11:44 AM ESTAddended by: WALKER FLORES on: 08/21/2025 11:44 AM Modules accepted: Orders * Telephone Encounter - Walker Flores RN - 08/21/2025 11:43 AM EST TC placed to patient [phone] in regards to below message. Patient did not answer, RN left requesting CB to red team nurses. Patient to f/u PRN. If patient returns call, please advise Tspot BW order has been placed and patient can come to thelab at her convenience. * Telephone Encounter - Marcos Dickey - 08/21/2025 11:41 AM EST Tc from pt requesting a call back to schedule TB test Contact at [phone] * Telephone Encounter - Walker Flores RN - 07/25/2025 10:29 AM EST TC placed to patient [phone] in regards to below message Patient reports her employer informedus that her Tspot screen is as of 08/21/25. Patient advised to contact [facility] after 08/21/25 to have a new Tspot ordered (after current Tspot expires). Patient verbalized understanding and did not have any further questions. Patient to f/u PRN. * Telephone Encounter - Ted Koch - 07/25/2025 9:47 AM EST Tc from pt requesting a TB test to be done for work. Pt would like to be contacted once order has been placed and ready to be done at [phone] documented in this encounter Plan of Treatment Upcoming Encounters Date Type Department Care Team (Late st Contact Info) Description 09/21/2025 9:30 AM EST Office Visit [facility] [address] [place] [address] Inga Ramirez FNP [address] [place] [address] Scheduled Orders Name Type Priority Associated Diagnoses Orde r Schedule T-SPOT .TB Lab Routine Encounter for screening for respiratory tuberculosis Expected: 08/21/2025 (Approximate), Expires: 08/21/2026 documented as of this encounter Visit Diagnoses Diagnosis Encounter for screening for respiratory tuberculosis documented in this encounter Additional Health Concerns Assessment Noted Time PHQ-9 Depression Total Score: 1 02/13/20 25 3:37 PM EDT documented as of this encounter Care Teams Data Processing Systems Project Planner Relationship Specialty Start Date End Date Inga Ramirez FNP [address] [place] [address] PCP - General Family Medicine 12/04/22 documented as of this encounter
--- OUTSIDE RECORDS SUMMARY | 2025-08-21 17:55 | XMS_ITS | Encounter Summary ---
Author Organization [employer] Address [address] [place] [address] 7 [place] [address] Care Team Providers Care Beach Expert Name Role Phone [facility] Primary Care Provider [phone] Reason for Visit * Reason Onset Date Comments Prior Authorization 12/24/2022 Encounter Details Date Type Department Care Team ([facility] st Contact Info) Description 12/24/2022 Telephone [facility] [address] [place] [address] [facility] [address] [place] [address] Prior Authorization Social History Tobacco Use Types Packs/Day Years [...] encounter Miscellaneous Notes * Telephone Encounter - Savanah Gomez - 12/29/2022 10:54 AM EDT Please send One touch ultra test strips to pharmacy to be covered, [facility] * Telephone Encounter - Nabeel Canalesos - 12/24/2022 9:27 AM EDT Tc from pt requesting a pa for medication glucose blood (OneTouch Verio) test strip documented in this encounter Plan of Treatment Upcoming Encounters Date Type Department Care Team (Late st Contact Info) Description 09/21/2025 9:30 AM EST Office Visit [facility] [address] [place] [address] Inga Ramirez FNP [address] [place] [address] documented as of this encounter Visit Diagnoses Not on filedocumented in this encounter Additional Health Concerns Assessment Noted Time PHQ-9 Depression Total Score: 0 10/05/19 23 1:21 PM EST documented as of this encounter Care Teams Beach Expert Relationship Specialty Start Date End Date Inga Ramirez FNP [address] [place] [address] PCP - General Family Medicine 12/04/22 documented as of this encounter
--- OUTSIDE RECORDS SUMMARY | 2025-08-21 17:55 | XMS_ITS | Clinical Summary ---
Author Organization [facility] Address [address] [place] [address] Care Team Providers Care Motor Scooter Repairer Name Role Phone [facility] Primary Care Provider [phone] Allergies Active Allergy Reactions Criticality Noted Date Comments Bacitracin Hives 09/08/2016 Neomycin Unknown 09/08/2016 Polymyxin B Unknown 09/08/2016 Medications No known medications Social History Tobacco Use Types Packs/Day Years Used Date Smoking Tobacco: Never Assessed Comments Unknown Sex and Gender Information Value Date Recorded Sex Assigned at Female 07/12/2023 2:28 PM EST Legal Sex Female 10:04 AM EDT Gender Identity Not on file Sexual Orientation Not on file Plan of Treatment Health Maintenance Due Date Last Done Comments Cervical Cancer Screening 1991 HIV Screening 1991 HPV and Pap Smear 1991 Hepatitis C Screening 1991 Pap Smear 1991 Varicella Vaccines (1 of 2 - 13+ 2-dose series) 2004 Hepatitis B Vaccines (1 of 3 - 19+ 3-dose series) 2010 Alcohol/Substance Use Screening 09/06/2024 Depression Screening and Follow-Up 09/06/2024 Social Drivers of Health Annual Screening 09/06/2024 Influenza Vaccine (#1) 2025 07/11/2021, 2015 COVID-19 Vaccine (2024- season) 2025 08/08/2022, 08/09/2021, 01/18/2021, Additional history exists DTaP,Tdap,and Td Vaccines (3 - Td or Tdap) 08/11/2029 08/11/2019, 12/31/2015 Pneumococcal Vaccine: Pediatric (0-5 Years) and At-Risk Patients (6-50 Years) Aged Out No longer eligible based on patient's age to complete this topic Insurance [employer] [address] [place] [address] [facility] [place] Eliel [address] [facility] [place] Care Teams Motor Scooter Repairer Relationship Specialty Start Date End Date [facility] PCP - General 06/22/23
--- OUTSIDE RECORDS SUMMARY | 2025-08-21 17:55 | XMS_ITS | Clinical Summary ---
Author Organization [employer] Address [address] [place] [address] Care Team Providers Care Site Controller Name Role Phone [facility] Primary Care Provider [phone] Allergies Active Allergy Reactions Criticality Noted Date Comments Bacitracin Hives 09/08/2016 Neomycin 09/08/2016 Polymyxin B 09/08/2016 Medications acetaminophen (Tylenol) 500 MG tablet take 1 tablet (500MG) by oral route every 6 hours as needed 10/01/19 22 Active medroxyPROGESTER one (Depo-Provera) 150 MG/ML injection INJECT 1 ML INTO THE MUSCLE EVERY 3 MONTHS 01/06/20 22 Active Blood Glucose Monitoring Suppl (demandmart) w/Device kitIndications:T ype 2 diabetes mellitus with hyperglycemia, without long-term current use of insulin ([facility]) 1 each 2 times daily. 1 kit 12/23/19 23 Active dulaglutide (Trulicity) 1.5 MG/0.5ML solution pen-injectorIndi cations:Type 2 diabetes mellitus without complication, without long-term current use of insulin ([facility]) Inject 1.5 mg under the skin 1 (one) time per week. 4 pen 11 03/01/20 23 Active LIFESCAN FINEPOINT LANCETS miscIndications: Type 2 diabetes mellitus with hyperglycemia, without long-term current use of insulin ([facility]) USE TO TEST BLOOD SUGAR TWICE A DAY 100 each 11 05/17/20 23 Active budesonide-formo terol (Symbicort) 160-4.5 MCG/ACT inhaler 2 times a day 12/18/19 23 Active Menthol (Cepacol Sore Throat) 5.4 MG lozenge Dissolve 1 tablet in the mouth every 2 (two) hours if needed (sore throat). 20 lozenge 06/24/20 23 Active bisacodyl (Dulcolax) 10 MG suppositoryIndic ations:Chronic constipation Insert 1 suppository (10 mg) into the rectum in the morning. 30 suppository 09/26/19 24 Active spironolactone (Aldactone) 25 MG tabletIndication s:Elevated blood-pressure reading without diagnosis of hypertension Take 1 tablet (25 mg) by mouth in the morning. 90 tablet 3 11/17/19 24 Active metFORMIN (Glucophage) 500 MG tabletIndication s:PCOS (polycystic ovarian syndrome) TAKE 1 TABLET BY MOUTH EVERY DAY WITH BREAKFAST 90 tablet 03/22/20 24 Active cetirizine-pseud oephedrine (ZyrTEC-D) 5-120 MG 12 hr tablet Take 1 tablet by mouth 2 times daily. 6 tablet 11 06/27/20 24 Active Trulicity 0.75 MG/0.5ML solution auto-injectorInd ications:Type 2 diabetes mellitus without complication, without long-term current use of insulin ([facility]) INJECT 0.75 MG UNDER THE SKIN 1 (ONE) TIME PER WEEK. 2 mL 3 07/03/20 24 Active SUMAtriptan (Imitrex) 50 MG tablet TAKE 1 TO 2 TABLETS BY MOUTH EVERY 6 HOURS NEEDED FOR MIGRAINE/ MAY REPEAT DOSE ONCE IN 2 HOURS IF NO RELIEF. DO NOT EXCEED 200MG IN 24 HOURS. 9 tablet 07/24/20 24 Active olmesartan (BENIcar) 5 MG tabletIndication s:Primary hypertension TAKE 1 TABLET BY MOUTH EVERY DAY IN THE MORNING 90 tablet 1 08/07/20 24 Active azelastine (Astelin) 0.1 % nasal spray SPRAY 2 SPRAYS INTO EACH NOSTRIL TWICE A DAY 30 mL 3 01/02/20 25 Active cyclobenzaprine (Flexeril) 5 MG tabletIndication s:Muscle spasm Take 1 tablet (5 mg) by mouth every 8 (eight) hours if needed for muscle spasms. 15 tablet 02/13/20 25 Active Accu-Chek Softclix Lancets lancets Use to check BS twice daily as directed 100 each 12 04/03/20 25 026 Active Blood Glucose Monitoring Suppl (ONE TOUCH ULTRA 2) w/Device kit Use to test blood sugar 2 times daily 1 kit 04/06/20 25 Active Blood Glucose Monitoring Suppl (Accu-Chek Guide Me) w/Device kitIndications:T ype 2 diabetes mellitus without complication, without long-term current use of insulin ([facility]) TEST BLOOD SUGAR TWICE A DAY 1 kit 04/10/20 25 Active glucose blood (Accu-Chek Guide Test) test stripIndications :Type 2 diabetes mellitus without complication, without long-term current use of insulin ([facility]) 1 Lancet 2 times daily. 100 each 12 04/10/20 25 026 Active Blood Glucose Monitoring Suppl (Accu-Chek Guide Me) w/Device kit Use to check BS as directed 1 kit 04/10/20 25 Active Accu-Chek FastClix Lancets miscIndications: Type 2 diabetes mellitus without complication, without long-term current use of insulin ([facility]) TEST BLOOD SUGAR ONCE A DAY 100 each 11 04/10/20 25 Active glucose blood (Accu-Chek Guide Test) test strip Use to check BS once daily as directed 100 each 12 04/10/20 25 026 Active Active Problems Problem Noted Date Diagnosed Date Subacute frontal sinusitis 06/27/2024 Assessment & Plan (06/27/2024 1:36 PM EDT): Use Zyrtec D x 2-3 days + Ibuprofen 600 mg + Flonase. Continue Flonase for 1-2 weeks. Migraine without status migrainosus, not intract able 06/27/2024 Assessment & Plan (06/27/2024 1:36 PM EDT): Probably triggered by sinus congestion, which will be treated first as above. Take Sumatriptan 50-100 mg every 6 hrs prn migraine if Sx do not resolve within 2 days of treating sinusitis. Re-consult prn. Encounter for preventive health examination 08/06 Assessment & Plan (08/20/2023 12:17 PM EST): See HPI Upper respiratory infection 06/24/2023 Assessment & Plan (06/24/2023 11:57 PM EDT): Pt viral resp syntoms COVID,strep,flu neg today , normal VS and benign examination -supportive tx ,hydration -tylenol prn ,NSAIDS prn ,benzonate,cepacol, -alarm signs ans symptoms discussed -rest Healthcare maintenance 03/11/2023 Overview (03/11/2023): Mammo: Routine. No family hx Pap: Followed by Katelyn Boyer in [place]. Reports pap last week negative. Needs records C-scope: Routine. Neg family hx Chronic constipation 03/11/2023 Overview (04/27/2023): Followed [facility] Assessment & Plan (04/28/2023 1:08 PM EDT): Continue miralax and senna as prescribed Will submit PA for amidanyellia start Follow up as scheduled with GI Primary hypertension 01/28/2023 Overview (03/11/2023): Olmesartan 5mg Maintenance: BMP: 11/2022 Lipid Panel: 11/2022 ASCVD Risk: Calculate pending updated labs EKG: Obtain baseline at f/u - Aerobic exercise to reduce BP. Initial goal of 30 min walk 3-5x/week. Increase as tolerated. - low-sodium diet (goal: <2g/day) and heart healthy diet such as DASH to reduce BP and prevent ASCVD. - Home BP monitoring 1-2 x day with goal of <140/90. - Seek immediate medical attention for chest pain, palpitations, SOB, syncope, or sudden changes in mental status. - Do not change or discontinue current prescriptions without first consulting health care provider Assessment & Plan (08/08/2023 4:56 PM EST): Well controlled Continue current regimen Assessment & Plan (04/28/2023 1:07 PM EDT): Well controlled Continue current regimen Assessment & Plan (03/11/2023 12:23 PM EDT): Continue current regimen Class 2 obesity 09/28/2022 Palpitations 09/28/2022 Overview (09/28/2022): Evaluated Dr. Julian Appt 08/19/22 Believes r/t Diabetes Noncardiac chest pain Followup 6 months Type 2 diabetes mellitus wit hout complication, without long-term current use of insulin 09/28/2022 Overview (07/30/2024): Foot Exam: Followed by podiatry Eye Exam: Up to date Statin: No ASA: No ONESIMO/ARB: Yes Encouraged regular aerobic exercise for improved glycemic control Encouraged daily foot checks Encouraged lean protein snacks and to avoid foods high in sugar and simple carbohydrates Treatment Goals: A1c goal: <7% FBG goal: <130 2 hour post prandial goal: <180 Assessment & Plan (08/20/2023 12:16 PM EST): Continue to follow with PCP Assessment & Plan (08/08/2023 4:56 PM EST): Lab Results Component Value Date HGBA1C 5.2 2023 Well controlled Continue current regimen Assessment & Plan (04/28/2023 1:15 PM EDT): Lab Results Component Value Date HGBA1C 5.4 10/06/2022 Continue current regimen Assessment & Plan (03/11/2023 12:22 PM EDT): Lab Results Component Value Date HGBA1C 5.4 10/06/2022 INCREASE trulicity to 1.5mg subcutaneous to maximize weight loss benefit SOB (shortness of breath) 09/28/2022 Overview (09/28/2022): Evaluated Dr. Julian Appt 08/19/22 Referred to Pulm Followup with Pulm Polycystic ovary syndrome 07/11/2021 Overview (03/11/2023): Spironolactone Metformin Depo [place] [facility] Vitamin D deficiency 09/15/2018 Hirsutism 09/15/2018 Resolved Problems Problem Noted Date Diagnosed Date Resolved Date Elevated blood-pressure read ing without diagnosis of hypertension 02/08/2019 06/24/2023 Indigestion 02/08/2019 03/11/2023 Encounters Date Type Department Care Team Description 07/25/2025 Telephone [facility] [address] [place] [address] Inga Ramirez FNP Lab Orders 06/01/2025 Telephone [facility] [address] [place], [place] [id number] Inga Ramirez FNP from Last 3 Months Immunizations Immunization Administration Dates Next Due DTaP 08/11/2019 Influenza injectable quadriv alent IIV4 with preservative 07/01/2016 Influenza injectable quadrivalent preservative f ree 08/17/2023,07/11/2021 MMR 08/17/2023 Tdap 12/31/2015 Family History Medical History Relation Name Comments Multiple sclerosis Father's Sister Diabetes type II Maternal Grandmother Hypertension Maternal Grandmother Breast cancer Paternal Grandmother Diabetes type II Paternal Grandmother Hypertension Paternal Grandmother Relation Name Status Comments Father's Sister Maternal Grandmother Paternal Grandmother Social History Tobacco Use Types Packs/Day Years Used Date Smoking Tobacco: Never Passive Smoke Exposure: Never Smokeless Tobacco: Never Tobacco Cessation:Counseling Given: Not Answered Alcohol Use Standard Drinks/Week Comments Not Currently [...] Orientation Straight 07/06/2022 10 :30 AM EDT Last Filed Vital Signs Vital Sign Reading Time Taken Comments Blood Pressure 118/70 02/12/2025 3:11 PM EDT Pulse 76 02/12/2025 3:11 PM EDT Temperature 36.3 C (97.3 F) 02/12/2025 3:11 PM EDT Respiratory Rate 20 02/12/2025 3:11 PM EDT Oxygen Saturation 100% 02/12/2025 3:11 PM EDT Inhaled Oxygen Concentration - - Weight 106 kg (234 lb) 02/12/2025 3:11 PM EDT Height 167.6 cm (5' 6 ) 02/12/2025 3:11 PM EDT Body Mass Index 37.77 02/12/2025 3:11 PM EDT Plan of Treatment Upcoming Encounters Date Type Department Care Team (Late st Contact Info) Description 09/21/2025 9:30 AM EST Office Visit [facility] [address] [place] [address] [facility] [address] [place] [address] Health Maintenance Due Date Last Done Comments Alcohol/Substance Use Screening 2003 Family Planning (PISQ) 2006 HPV Vaccines (1 - 3-dose series) 2006 Hepatitis B Vaccines (1 of 3 - 19+ 3-dose series) 2010 Pneumococcal Vaccine: Pediatrics (0 to 5 Years) and At-Risk Patients (6 to 49) Years (1 of 2 - PCV) 2010 COVID-19 Vaccine (5 - season) 2025 08/08/2022, 08/09/2021, 01/18/2021, Additional history exists Influenza Vaccine (#1) 2025 , 07/11/2021, 07/01/2016 Diabetes: Hemoglobin A1C 08/14/2025 025, 05/03/2024, 02/02/2024, Additional history exists Diabetes: Urine Protein Screening 08/15/2025 08/15/2024 Lipid Panel 08/15/2025 08/15/2024, 0711/2022, 07/11/2021 Diabetes: Foot Exam 08/21/2025 08/21/2024, 08/21/2024, 08/21/2024, Additional history exists Pap Smear 01/12/2026 01/12/2023 Depression Screening 02/12/2026 02/12/2025, 02/13/20 25 Disability Screening 02/12/2026 02/12/2025 SDOH Screening 02/12/2026 02/12/2025 Tobacco Screening 02/20/2026 02/20/2025 Eye Exam 03/06/2026 03/06/2024, 02/28/2024 Cervical Cancer Screening 01/13/2028 HPV/Cotest 01/13/2028 01/12/2023 DTaP/Tdap/Td Vaccines (3 - Td or Tdap) 08/11/2029 08/11/2019, 12/31/2015 Zoster Vaccines (1 of 2) 2041 RSV Patients and Patients Aged 60 years or older (1 - 1-dose 75+ series) 2066 HIV Screening Completed 07/15/2022 Hepatitis C Screening Completed 03/18/2023 HIB Vaccines Aged Out No longer eligi ble based on patient's age to complete this topic Hepatitis A Vaccines Aged Out No long er eligible based on patient's age to complete this topic IPV Vaccines Aged Out No longer eligi ble based on patient's age to complete this topic Meningococcal B Vaccine Aged Out No l onger eligible based on patient's age to complete this topic Meningococcal Vaccine Aged Out No thiago raysa eligible based on patient's age to complete this topic RSV under 20 months Aged Out No longe r eligible based on patient's age to complete this topic Rotavirus Vaccines Aged Out No longer eligible based on patient's age to complete this topic Procedures Procedure Name Priority Date/Time Associated Diagnosis Comments POCT GLYCATED HEMOGLOBIN, TOTAL Routine 02/12/2025 3:14 PM EDT Type 2 diabetes mellitus without complication, without long-term current use of insulin (CMS/HCC) ALBUMIN, RANDOM URINE W/CREATININE Routine 08/15/2024 11:21 AM EST Type 2 diabetes mellitus without complication, without long-term current use of insulin (CMS/HCC) LIPID PANEL, STANDARD Routine 08/15/2024 11:21 AM EST Type 2 diabetes mellitus without complication, without long-term current use of insulin (CMS/HCC) AMB REFERRAL TO OPTOMETRY Routine 02/28/2024 Type 2 diabetes mellitus without complication, without long-term current use of insulin (CMS/HCC) HEPATITIS PANEL, GENERAL Routine 03/18/2023 1:38 PM EDT HM PAP/HPV Routine 01/12/2023 ZZZ HISTORICAL HIV AB/AG Routine 07/15/2022 12:43 PM EST from Last 3 Months or Most Recently Relevant to Health Maintenance Results * POCT HGB A1C (02/12/2025 3:14 PM EDT) Hemoglobin A1C 5.3 4.0 - 6.0 % QC Media Lot # [id number] Lot# Expiration Date 101 Blood 02/12/2025 3:14 PM EDT [facility] POINT OF CARE TEST ENTER/EDIT ORDERABLES Final Result * Albumin, Random Urine W/Creatinine (08/15/2024 11:21 AM EST) Creatinine, Urine 155.11 mg/dL [facility] Microalbumin Urine 32.0 mg/L [facility] Microalbum Creatinine Ratio Ur 20.6 <30 ug/mg cr [facility] Comment:Albumin/Creatinine R atio Reference Ranges: Normal: < 30 ug/mg creatinine Microalbuminuria: 30 - 300 ug/mg creatinineClinical Albuminuria: > 300 ug/mg creatinine Urine 08/15/2024 11:2 1 AM EST 08/15/2024 1:10 PM EST [facility] LAB URINE ORDERABLES Final Re sult [facility] [address] [place] [phone] * (ABNORMAL) Lipid Panel, Standard (08/15/2024 11:21 AM EST) Triglycerides 92 <150 mg/dL [facility] Comment:Desirable Triglyceri de: less than 150 mg/dLBorderline High Triglyceride 150-199 mg/dLHigh Triglyceride: 200-499 mg/dLVery High Triglyceride: greater than or equal to 5OO mg/dL Cholesterol 162 <200 mg/dL [facility] Comment:Desirable Cholestero l: less than 200 mg/dLBorderline High Cholesterol: 200-239 mg/dLHigh Cholesterol: greater than 239 mg/dL LDL Cholesterol Calculated 114(H) <100 mg/dL [facility] Comment:Desirable LDL: less than 100 mg/dLNear Optimal/Above Optimal LDL: 110- 129 mg/dLBorderline High LDL: 130-159 mg/dLHigh LDL: 160-189 mg/dLVery High LDL: greater than or equal to 190 mg/dL HDL Cholesterol 30(L) >40 mg/dL [facility] Comment:Desirable HDL: great er than 40 mg/dL Note: This HDL assay may give artificially low results in patients with liver disease. Blood Venous blood specimen / Unknown 08/15/2024 11:21 AM EST 08/15/2024 1:03 PM EST [facility] LAB BLOOD ORDERABLES Final Re sult Performing Organization Address [facility] Co de Phone Number [facility] [address] [place] [address] [phone] * Referral to Optometry (02/28/2024) Result [facility] OUTPATIENT REFERRAL ORDERABLE S Final Result * Hepatitis Panel, General (03/18/2023 1:38 PM EDT) Pathologist [facility] Hepatitis A IgM Nonreactive Nonreactive [facility] Comment:IgM antibodies to JENKINS V not detected; does not exclude earlyacute or recovered HAV infection. ~Hepatitis B Surface Antibody REACTIVE Nonreactive [facility] Comment:REACTIVE: > 11.99 mI U/mL Hepatitis B Core Antibody Nonreactive Nonreactive [facility] Hepatitis C Antibody Nonreactive Nonreactive [facility] Comment:Antibodies to HCV no t detected; does not exclude early acuteHCV infection. Hepatitis B Surface Ag Negative Negative [facility] 03/18/2023 1:38 PM EDT 03/18/2023 4:28 PM EDT Result [facility] External Provider LAB BLO OD ORDERABLES Final Result Performing Organization Address [facility] Co de Phone Number [facility] [address] [place] [address] [phone] * Hm Pap Smear (01/12/2023) Pathologist [facility] Pap Negative for intraephithelial lesion or malignancy Negative for intraephithelial lesion or malignancy, Other Comment:NIL HPV neg repeat 5 years HPV Undetected 01/12/2023 Result [facility] HEALTH MAINTENANCE Final Resu lt * HIV AB/AG (07/15/2022 12:43 PM EST) HIV AB/AG Nonreactive Nonreactive [facility] Comment: HIV-1 p24 Ag and/or HIV-1/HIV-2 Ab not detected. A test result that is nonreactive does not exclude the possibility of exposure to or infection with HIV-1 and/or HIV-2. Nonreactive results in this assay for individuals with prior exposure to HIV-1 and/or HIV-2 may be due to antigen and antibody levels that are below the limit of detection of this assay. [employer] Administrative Assistant HIV Ag/Ab Combo assay result and supplemental assay results should be interpreted in conjunction with the patient's clinical presentation, history and other laboratory results. If the results are inconsistent with clinical evidence, additional testing is suggested to confirm the result. 07/15/2022 12:4 3 PM EST [facility] STRIP WINDER HISTORICAL/NON ORDERABLE LABS Final Result [facility] from Last 3 Months or Most Recently Relevant to Health Maintenance Insurance [employer] PPO [employer] Care Teams Site Controller Relationship Specialty Start Date End Date Inga Ramirez FNP [address] [place] [id number] PCP - General Family Medicine 12/04/22
[2025-08-24 02:33] LABS: TS Negative Control Passed; TS Panel A 0; TS Panel B 0; TS Positive Control Passed; TSpotTB Negative (Negative)
== END 2025-08-21 13:45 | disposition home or self-care (01) ==
LOC: HO.HHCL 13:44
PROVIDERS: PCP Registered Nurse; Visit Provider Registered Nurse
DX: Z11.1 Encounter for screening for respiratory tuberculosis (principal)
CPT/HCPCS: 36415; 86481